=== PATIENT | female | born 1965 | race Caucasian/White ===

== ENCOUNTER 2016-08-19 10:25 | Emergency (ER) | payer OTHER | END 2016-08-19 11:18 | disposition home or self-care (01) | DX: H10.9 Unspecified conjunctivitis (principal); E03.9 Hypothyroidism, unspecified ==

== ENCOUNTER 2016-11-22 19:29 | Emergency (ER) | payer OTHER ==
[2016-11-22] MEDS ORDERED: predniSONE 20 MG TABLET PO STA (19:50)
--- NOTE | 2016-11-22 19:53 | ED Physician Documentation ---
PD HPI SKIN - Stated complaint Stated Complaint: RASH ALL OVER - Chief complaint Chief Complaint: Allergic Rx - History obtained from History obtained from: Patient - History of Present Illness Timing - onset: Other (3rd episode of itchy rash on legs/arms. Has been happening about once monthly for the last few months. Topical steroid not very effective. Plans to see derm, but new outbreak tonight. No weight chgs, night sweats or fatigue. No hair/nail chgs.) Review of Systems Constitutional: denies: Myalgias, Fatigue, Weight Loss, Sweats GI: denies: Abdominal Pain, Nausea, Vomiting : reports: Reviewed and negative PD PAST MEDICAL HISTORY - Past Medical History Past Medical History: Yes Neuro: Headache/migraine Endocrine/Autoimmune: HyPOthyroidism Other Past Medical History: environmental allergies - Past Surgical History Past Surgical History: Yes - Present Medications Home Medications: Ambulatory Orders Medication Instructions Recorded Confirmed Fluticasone [Flonase] 1 spray INH DAILY 12/20/13 11/22/16 Levothyroxine [Synthroid] 25 mcg PO DAILY 12/20/13 11/22/16 Olopatadine HCl [Patanol] 1 drop EACHEYE DAILY 01/09/15 11/22/16 Butalb/Acetaminophen/Caffeine 1 tab PO DAILY PRN 04/16/15 11/22/16 [Fioricet 50-300-40 mg Capsule] Zolmitriptan [Zomig] 2.5 mg PO DAILY PRN 09/04/15 11/22/16 Atorvastatin [Lipitor] 1 tab PO DAILY 08/19/16 11/22/16 Loratadine [Claritin] 1 tab PO DAILY 08/19/16 11/22/16 predniSONE [Deltasone] 60 mg PO DAILY 5 Days 11/22/16 - Allergies Allergies/Adverse Reactions: Allergies Allergy/AdvReac Type Severity Reaction Status Date / Time No Known Drug Allergies Allergy Verified 08/19/16 10:32 - Social History Does the pt smoke?: No Smoking Status: Never smoker Does the pt drink ETOH?: No Does the pt have substance abuse?: No - Immunizations Immunizations are current?: Yes - POLST Patient has POLST: Yes PD ED PE NORMAL - Vitals Vital signs reviewed: Yes - General General: Alert and oriented X 3, No acute distress - HEENT HEENT: Pharynx benign - Derm Derm: Other (On dorsal arms and anterior left ayala there are raised red lesions somewhat c/w urticaria but no central clearing.) - Neuro Neuro: Alert and oriented X 3, Normal speech - Psych Psych: Normal mood, Normal affect Results - Vitals Vitals: Vital Signs - 24 hr 11/22/16 11/22/16 19:33 20:14 Temperature 36.2 C L Heart Rate 102 H 98 Respiratory 18 18 Rate Blood Pressure 164/100 H 159/102 H O2 Saturation 99 98 Oxygen O2 Source Room air - Labs Labs: Laboratory Tests 11/22/16 11/22/16 11/22/16 20:10 20:10 20:10 WBC 7.4 RBC 4.20 Hgb 12.7 Hct 37.4 MCV 89.0 MCH 30.3 MCHC 34.1 RDW 13.3 Plt Count 243 MPV 8.4 Neut # 4.3 Lymph # 2.5 [place] # 0.5 Eos # 0.1 Baso # 0.1 Absolute Nucleated RBC 0.02 Nucleated RBCs 0.2 ESR 11 Sodium 138 Potassium 3.7 Chloride 104 Carbon Dioxide 25 Anion Gap 9.0 BUN 17 Creatinine 0.8 Estimated GFR (MDRD) 76 L Glucose 102 H Calcium 9.8 Total Bilirubin 0.4 AST 21 ALT 19 Alkaline Phosphatase 91 Total Protein 7.6 Albumin 4.6 Globulin 3.0 Albumin/Globulin Ratio 1.5 Lipase 26 PD MEDICAL DECISION MAKING - ED course ED course: 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 She is started on prednisone. Departure - Departure Disposition: 01 Home, Self Care Clinical Impression: Urticaria Condition: Good Record reviewed to determine appropriate education?: Yes Instructions: ED Allergic Reaction General Other Follow-Up: Jamie Johnson PA-C [Physician No Access] - Prescriptions: predniSONE [Deltasone] 60 mg PO DAILY 5 Days Comments: Followup with derm I will mail labs to you Recheck you blood pressure within 1-2 weeks, high on chck in to ED tonight. Discharge Date/Time: 11/22/16 20:15
[2016-11-22] MEDS ORDERED: predniSONE 20 MG TABLET ONE (19:55)
[2016-11-22 20:15] VITALS: BP 159/102
[2016-11-22 20:32] LABS: BASOPHILS # (AUTO) 0.1 10^3/uL (0.0-0.1); BASOPHILS % (AUTO) 0.7 %; EOSINOPHILS # (AUTO) 0.1 10^3/uL (0.0-0.7); EOSINOPHILS % (AUTO) 0.9 %; HCT - HEMATOCRIT 37.4 % (37.0-47.0); HGB - HEMOGLOBIN 12.7 g/dL (12.0-16.0); LYMPHOCYTES # (AUTO) 2.5 10^3/uL (1.5-3.5); LYMPHOCYTES % (AUTO) 33.6 %; MEAN CORPUSCULAR HEMOGLOBIN 30.3 pg (27.0-31.0); MEAN CORPUSCULAR HGB CONC 34.1 g/dL (32.0-36.0); MEAN PLATELET VOLUME 8.4 fL (7.9-10.8); MONOCYTES # (AUTO) 0.5 10^3/uL (0.0-1.0); MONOCYTES % (AUTO) 6.3 %; NEUTROPHILS # (AUTO) 4.3 10^3/uL (1.5-6.6); NEUTROPHILS % (AUTO) 58.5 %; NUCLEATED RED BLOOD CELLS AUTO 0.2 /100WBC; RED CELL DISTRIBUTION WIDTH 13.3 % (12.0-15.0); UNCORRECTED WHITE BLOOD COUNT 7.4 x10^3/uL; WHITE BLOOD COUNT 7.4 x10^3/uL (4.8-10.8)
[2016-11-22 20:53] LABS: ALBUMIN/GLOBULIN RATIO 1.5 (1.0-2.2); BILIRUBIN,TOTAL 0.4 mg/dL (0.2-1.0); CALCIUM 9.8 mg/dL (8.5-10.3); CREATININE 0.8 mg/dL (0.4-1.0); POTASSIUM 3.7 mmol/L (3.5-5.0); TOTAL PROTEIN 7.6 g/dL (6.7-8.2)
[2016-11-28 06:53] LABS: ANA SCREEN POSITIVE (NEGATIVE)
[2016-11-28 16:13] LABS: TEST RESULT REPORT (())
--- NOTE | 2016-11-29 22:28 | ED Physician Documentation ---
ED Addendum - Addendum Addendum: 11/29/16 22:27 I spoke with her by phone earlier today and discussed her lab results including the positive FAY and followup with rheumatology was advised. I mailed her a copy of her labs.
== END 2016-11-22 20:15 | disposition home or self-care (01) ==
LOC: ED 19:29
DX: L50.9 Urticaria, unspecified (principal); R76.8 Other specified abnormal immunological findings in serum; R03.0 Elevated blood-pressure reading, without diagnosis of hypertension; E03.9 Hypothyroidism, unspecified
CPT/HCPCS: 36415; 80053; 81599; 83690; 85025; 85651; 86038; 99283; J7512; 83520

== ENCOUNTER 2017-07-25 10:22 | Emergency (ER) | payer OTHER ==
--- NOTE | 2017-07-25 11:04 | ED Physician Documentation ---
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 L rib pain L foot pain seen at [facility] and abrasions cleaned no xrays today hurts a bit more needs her L&I paperwork completed too Review of Systems Constitutional: denies: Fever Cardiac: reports: Chest pain / pressure (L ribs) GI: denies: Abdominal Pain : denies: Now EGA (denies) Musculoskeletal: reports: Extremity pain, Pain with weight bearing Neurologic: denies: Focal weakness, Numbness PD PAST MEDICAL HISTORY - Past Medical History Neuro: Headache/migraine Endocrine/Autoimmune: HyPOthyroidism - Past Surgical History Past Surgical History: Yes - Present Medications Home Medications: Ambulatory Orders Medication Instructions Recorded Confirmed Fluticasone [Flonase] 1 spray INH DAILY 12/20/13 07/25/17 Levothyroxine [Synthroid] 25 mcg PO DAILY 12/20/13 07/25/17 Olopatadine HCl [Patanol] 1 drop EACHEYE DAILY 01/09/15 07/25/17 Butalb/Acetaminophen/Caffeine 1 tab PO DAILY PRN 04/16/15 07/25/17 [Fioricet 50-300-40 mg Capsule] Zolmitriptan [Zomig] 2.5 mg PO DAILY PRN 09/04/15 07/25/17 Atorvastatin [Lipitor] 1 tab PO DAILY 08/19/16 07/25/17 Loratadine [Claritin] 1 tab PO DAILY 08/19/16 07/25/17 - Allergies Allergies/Adverse Reactions: Allergies Allergy/AdvReac Type Severity Reaction Status Date / Time No Known Drug Allergies Allergy Verified 08/19/16 10:32 - Social History Does the pt smoke?: No Smoking Status: Never smoker Does the pt drink ETOH?: No Does the pt have substance abuse?: No - Immunizations Immunizations are current?: Yes - POLST Patient has POLST: Yes PD ED PE NORMAL - Vitals Vital signs reviewed: Yes - HEENT HEENT: Atraumatic - Cardiac Cardiac: RRR - Respiratory Respiratory: No respiratory distress, Clear bilaterally, Other (TTP L low lat ribs s crepitus or bruise) - Abdomen Abdomen: Non tender (no spleen TTP) - Derm Derm: Normal color - Extremities Extremities: Other (mild TTP prox 5th MT, MSV intact, no deformity, mild discloration c/w early bruising) Results - Vitals Vitals: Vital Signs - 24 hr 07/25/17 10:30 Temperature 37.4 C Heart Rate 92 Respiratory 16 Rate Blood Pressure 137/92 H O2 Saturation 98 Oxygen O2 Source Room air - Rads (name of study) CXR Radiology: See rad report (no fx) foot Radiology: See rad report (possible proximal 5th MT fx) Departure - Departure Disposition: Home, Self Care Clinical Impression: Fall Qualifiers: Encounter type: initial encounter Qualified Code(s): W19.XXXA - Unspecified fall, initial encounter Rib contusion Qualifiers: Encounter type: initial encounter Laterality: left Qualified Code(s): S20.212A - Contusion of left front wall of thorax, initial encounter Foot fracture, left Qualifiers: Encounter type: initial encounter Fracture type: closed Qualified Code(s): S92.902A - Unspecified fracture of left foot, initial encounter for closed fracture Condition: Good Instructions: ED Fx Foot, ED Contusion Rib Follow-Up: [facility] [Provider Group] MEENA DRIVER [Primary Care Provider] - [facility] [Provider Group] Comments: The ribs look fine But there may be a fracture at the base of the 5th metatarsal of the foot. So you should not walk on the foot at all and should follow up with orthopedics (here or at [facility] either is fine) for further evaluation and perhaps a CT or MRI - this is very important because the particular part of that particular bone s prone to poor blood flow and healing Motrin as needed for the pain. Ice and elevation will help too Forms: Activity restrictions
--- NOTE | 2017-07-25 12:12 | XRAY Report ---
EXAM: CHEST RADIOGRAPHY EXAM DATE: 07/25/2017 11:43 AM. CLINICAL HISTORY: Fall at work, L rib pain. COMPARISON: None. TECHNIQUE: 2 views. FINDINGS: Lungs/Pleura: No focal opacities evident. No pleural effusion. No pneumothorax. Normal volumes. Mediastinum: Heart and mediastinal contours are unremarkable. Other: Mild wedging mid thoracic vertebral bodies IMPRESSION: No active cardiopulmonary disease [facility] Referring Provider Line: [phone] SITE ID: [id number]
--- NOTE | 2017-07-25 12:15 | XRAY Preliminary Report ---
Exam: XR FOOT 3 VIEW LT IMPRESSION: Fifth proximal phalanx possible fracture. [facility] SITE ID: [id number]
--- NOTE | 2017-07-25 12:15 | XRAY Report ---
EXAM: LEFT FOOT RADIOGRAPHY EXAM DATE: 07/25/2017 11:44 AM. CLINICAL HISTORY: Fall at work L foot pain. COMPARISON: None. TECHNIQUE: 3 views. FINDINGS: Bones: Fifth proximal phalanx possible fracture. Mild metatarsus adductus. Mild bony overgrowth first metatarsal head. Plantar heel spur. Joints: Normal. No subluxations. Soft Tissues: Lateral soft tissue swelling. IMPRESSION: Fifth proximal phalanx possible fracture. [facility] Referring Provider Line: [phone] SITE ID: [id number]
[2017-07-25 13:00] VITALS: BP 159/98
== END 2017-07-25 13:29 | disposition home or self-care (01) ==
LOC: ED 10:22
DX: S92.902A Unspecified fracture of left foot, initial encounter for closed fracture (principal); S20.212A Contusion of left front wall of thorax, initial encounter; W01.0XXA Fall on same level from slipping, tripping and stumbling without subsequent striking against object, initial encounter; Y92.139 Unspecified place military base as the place of occurrence of the external cause; Y99.0 Civilian activity done for income or pay
CPT/HCPCS: 71046; 99283

== ENCOUNTER 2017-12-01 10:48 | Emergency (ER) | payer OTHER ==
[2017-12-01] MEDS ORDERED: ceFAZolin 1 GM VIAL IM STA (12:01)
[2017-12-01] MEDS ORDERED: LORATADINE 10 MG TABLET PO STA (12:07)
--- NOTE | 2017-12-01 12:39 | ED Physician Documentation ---
History of Present Illness - Stated complaint Stated Complaint: R THIGH PX - Chief complaint Chief Complaint: General - Additonal information Additional information: hx from pt 52 female prone to cellulitis s/p R inguinal lymph node removal has a new patch of infection to her R thigh no known wound etc no fever denies preg Review of Systems Constitutional: denies: Fever : denies: Now EGA Skin: reports: Rash PD PAST MEDICAL HISTORY - Past Medical History Past Medical History: Yes Endocrine/Autoimmune: HyPOthyroidism - Past Surgical History Past Surgical History: Yes - Present Medications Home Medications: Ambulatory Orders Medication Instructions Recorded Confirmed Fluticasone [Flonase] 1 spray INH DAILY 12/20/13 07/25/17 Levothyroxine [Synthroid] 25 mcg PO DAILY 12/20/13 07/25/17 Olopatadine HCl [Patanol] 1 drop EACHEYE DAILY 01/09/15 07/25/17 Butalb/Acetaminophen/Caffeine 1 tab PO DAILY PRN 04/16/15 07/25/17 [Fioricet 50-300-40 mg Capsule] Atorvastatin [Lipitor] 1 tab PO DAILY 08/19/16 07/25/17 Loratadine [Claritin] 1 tab PO DAILY 08/19/16 07/25/17 Cephalexin [Keflex] 500 mg PO Q6H #28 capsule 12/01/17 - Allergies Allergies/Adverse Reactions: Allergies Allergy/AdvReac Type Severity Reaction Status Date / Time No Known Drug Allergies Allergy Verified 12/01/17 11:12 - Social History Does the pt smoke?: No Smoking Status: Never smoker Does the pt drink ETOH?: No Does the pt have substance abuse?: No - Immunizations Immunizations are current?: Yes - POLST Patient has POLST: Yes PD ED PE NORMAL - Vitals Vital signs reviewed: Yes - General General: Alert and oriented X 3 - Cardiac Cardiac: RRR - Respiratory Respiratory: No respiratory distress, Clear bilaterally - Abdomen Abdomen: Soft, Non tender - Derm Derm: Other (pattch of warm erythema to lateral R thigh, surrounding small weals of erythema slightly rraised with periph clearing look almost hive like, no streaking, no open wounds distal to this infection, small pimple like spot upper inner thigh remote from this infection, MSV intact) Results - Vitals Vitals: Vital Signs - 24 hr 12/01/17 11:09 Temperature 36.9 C Heart Rate 92 Respiratory 16 Rate Blood Pressure 128/81 H O2 Saturation 99 Oxygen O2 Source Room air PD MEDICAL DECISION MAKING - Sepsis Event Vital Signs: Vital Signs - 24 hr 12/01/17 11:09 Temperature 36.9 C Heart Rate 92 Respiratory 16 Rate Blood Pressure 128/81 H O2 Saturation 99 Oxygen O2 Source Room air Departure - Departure Disposition: Home, Self Care Clinical Impression: Cellulitis Qualifiers: Site of cellulitis: extremity Site of cellulitis of extremity: lower extremity Laterality: right Qualified Code(s): L03.115 - Cellulitis of right lower limb Condition: Good Instructions: ED Infec Skin Cellulitis Follow-Up: MEENA DRIVER [Primary Care Provider] - (for a recheck Sunday ) Prescriptions: Cephalexin [Keflex] 500 mg PO Q6H #28 capsule Comments: Return if worse
[2017-12-01 13:02] VITALS: BP 134/101
== END 2017-12-01 13:01 | disposition home or self-care (01) ==
LOC: ED 10:48
DX: L03.115 Cellulitis of right lower limb (principal)
CPT/HCPCS: 96372; 99283

== ENCOUNTER 2018-04-08 16:28 | Emergency (ER) | payer OTHER ==
--- NOTE | 2018-04-08 16:57 | XRAY Report ---
Reason: chest pain Procedure Date: 04/08/2018 Accession Number: [id number] / [id number] Procedure: XR - Chest 2 View X-Ray CPT Code: 57243 FULL RESULT: EXAM: CHEST RADIOGRAPHY EXAM DATE: 04/08/2018 04:46 PM. CLINICAL HISTORY: Chest pain. COMPARISON: 07/25/2017. TECHNIQUE: 2 views. FINDINGS: Lungs/Pleura: No focal consolidation. No pleural effusion. No pneumothorax. Normal volumes. Mediastinum: Heart and mediastinal contours are normal. Other: None. IMPRESSION: No acute cardiopulmonary abnormality. [facility]
[2018-04-08 17:24] LABS: BASOPHILS # (AUTO) 0.1 10^3/uL (0.0-0.1); BASOPHILS % (AUTO) 1.2 %; EOSINOPHILS # (AUTO) 0.1 10^3/uL (0.0-0.7); EOSINOPHILS % (AUTO) 1.4 %; HGB - HEMOGLOBIN 13.5 g/dL (12.0-16.0); LYMPHOCYTES # (AUTO) 2.1 10^3/uL (1.5-3.5); LYMPHOCYTES % (AUTO) 37.5 %; MEAN CORPUSCULAR HEMOGLOBIN 30.7 pg (27.0-31.0); MEAN CORPUSCULAR HGB CONC 34.2 g/dL (32.0-36.0); MEAN CORPUSCULAR VOLUME 89.8 fL (81.0-99.0); MEAN PLATELET VOLUME 7.6 fL (7.9-10.8); MONOCYTES # (AUTO) 0.3 10^3/uL (0.0-1.0); MONOCYTES % (AUTO) 5.5 %; NEUTROPHILS % (AUTO) 54.4 %; PLT - PLATELET COUNT 287 10^3/uL (130-450); RED CELL DISTRIBUTION WIDTH 13.2 % (12.0-15.0); WHITE BLOOD COUNT 5.5 x10^3/uL (4.8-10.8)
[2018-04-08 17:39] LABS: ALBUMIN 4.5 g/dL (3.2-5.5); ALBUMIN/GLOBULIN RATIO 1.4 (1.0-2.2); BILIRUBIN,TOTAL 0.2 mg/dL (0.2-1.0); CALCIUM 9.3 mg/dL (8.5-10.3); CREATININE 0.9 mg/dL (0.4-1.0); TOTAL PROTEIN 7.7 g/dL (6.7-8.2)
[2018-04-08] MEDS ORDERED: SUMAtriptan 25 MG TABLET PO STA (20:02)
--- NOTE | 2018-04-08 20:10 | ED Physician Documentation ---
PD HPI CHEST PAIN - Stated complaint Stated Complaint: CP - Chief complaint Chief Complaint: Cardiac - History obtained from History obtained from: Patient - History of Present Illness Timing - onset: Today (She has been having increasing headaches lately, she had a gradual onset headache bothering her all day since she woke up. It has been persistent and severe and then later in the day, mid morning to midday she developed an odd chest pain that only bothered her when she walks. It was not the exertion that bothered her but the actual movement of walking, felt like bouncing up and down in the chest. She is not short of breath, not light sensitive. Is not the worst headache of her life. She denies any radiation of the chest pain. No pedal edema or calf pain or recent travel.) Review of Systems Constitutional: reports: Reviewed and negative Cardiac: denies: Palpitations, Pedal edema, Calf pain Respiratory: denies: Dyspnea, Cough, Hemoptysis, Wheezing PD PAST MEDICAL HISTORY - Past Medical History Endocrine/Autoimmune: HyPOthyroidism - Past Surgical History Past Surgical History: Yes - Present Medications Home Medications: Ambulatory Orders Medication Instructions Recorded Confirmed Fluticasone [Flonase] 1 spray INH DAILY 12/20/13 07/25/17 Levothyroxine [Synthroid] 25 mcg PO DAILY 12/20/13 07/25/17 Olopatadine HCl [Patanol] 1 drop EACHEYE DAILY 01/09/15 07/25/17 Butalb/Acetaminophen/Caffeine 1 tab PO DAILY PRN 04/16/15 07/25/17 [Fioricet 50-300-40 mg Capsule] Atorvastatin [Lipitor] 1 tab PO DAILY 08/19/16 07/25/17 Loratadine [Claritin] 1 tab PO DAILY 08/19/16 07/25/17 Cephalexin [Keflex] 500 mg PO Q6H #28 capsule 12/01/17 Rizatriptan Benzoate [Maxalt Chicken Handler] 5 mg PO BID PRN #18 tab.rapdis 04/08/18 - Allergies Allergies/Adverse Reactions: Allergies Allergy/AdvReac Type Severity Reaction Status Date / Time No Known Drug Allergies Allergy Verified 04/08/18 16:37 - Social History Does the pt smoke?: No Smoking Status: Never smoker Does the pt drink ETOH?: No Does the pt have substance abuse?: No - Immunizations Immunizations are current?: Yes - POLST Patient has POLST: Yes PD ED PE NORMAL - Vitals Vital signs reviewed: Yes - General General: Alert and oriented X 3, No acute distress - HEENT HEENT: PERRL, EOMI - Neck Neck: Supple, no meningeal sign, No bony TTP - Cardiac Cardiac: RRR, No murmur - Respiratory Respiratory: No respiratory distress, Clear bilaterally - Abdomen Abdomen: Non tender - Extremities Extremities: No edema, No calf tenderness / cord - Neuro Neuro: Alert and oriented X 3, Normal speech Eye Opening: Spontaneous Motor: Obeys Commands Verbal: Oriented GCS Score: 15 - Psych Psych: Normal mood, Normal affect Results - Vitals Vitals: Vital Signs - 24 hr 04/08/18 04/08/18 04/08/18 16:29 20:23 20:26 Temperature 36.3 C L 37.1 C Heart Rate 86 89 Respiratory 18 18 Rate Blood Pressure 147/97 H 131/95 H Blood Pressure 131/95 H [Left] O2 Saturation 98 97 Oxygen O2 Source Room air - EKG (time done) 1634 Rate: Rate (enter#) (83) Rhythm: NSR [place]: Normal Intervals: Normal [place] QRS: Normal Ischemia: Normal ST segments Computer interpretation: Agree with computer - Labs Labs: Laboratory Tests 04/08/18 04/08/18 04/08/18 17:20 17:20 17:20 WBC 5.5 RBC 4.40 Hgb 13.5 Hct 39.5 MCV 89.8 MCH 30.7 MCHC 34.2 RDW 13.2 Plt Count 287 MPV 7.6 L Neut # (Auto) 3.0 Lymph # (Auto) 2.1 [place] # (Auto) 0.3 Eos # (Auto) 0.1 Baso # (Auto) 0.1 Absolute Nucleated RBC 0.01 Nucleated RBC % 0.1 Sodium 138 Potassium 3.7 Chloride 103 Carbon Dioxide 27 Anion Gap 8.0 BUN 15 Creatinine 0.9 Estimated GFR (MDRD) 66 L Glucose 114 H Calcium 9.3 Total Bilirubin 0.2 AST 22 ALT 22 Alkaline Phosphatase 111 Troponin I < 0.04 Total Protein 7.7 Albumin 4.5 Globulin 3.2 Albumin/Globulin Ratio 1.4 Lipase 33 PD MEDICAL DECISION MAKING - ED course ED course: Heart score 1, Very atypical story, migraine is actually bothering her more. She had no relief with p.o. Imitrex but after the administration of IV Reglan Benadryl and Toradol she was feeling much better. Departure - Departure Disposition: 01 Home, Self Care Clinical Impression: Chest pain Qualifiers: Chest pain type: unspecified Qualified Code(s): R07.9 - Chest pain, unspecified Migraine Qualifiers: Migraine type: with aura Status migrainosus presence: with status migrainosus Intractability: intractable Qualified Code(s): G43.111 - Migraine with aura, intractable, with status migrainosus Condition: Good Record reviewed to determine appropriate education?: Yes Instructions: ED Chest Pain NonCardiac Prescriptions: Rizatriptan Benzoate [Maxalt Chicken Handler] 5 mg PO BID PRN #18 tab.rapdis PRN Reason: Headache Comments: Call your doctor to arrange a follow-up appointment, make the next available appointment. In the interim, return anytime if worse or if new symptoms develop.
[2018-04-08] MEDS ORDERED: SODIUM CHLORIDE 0.9% 1,000 ML IV ONE (21:06)
[2018-04-08] MEDS ORDERED: diphenhydrAMINE INJ 50 MG/ML VIAL IVP STA (21:06)
[2018-04-08] MEDS ORDERED: DEXAMETHASONE 10 MG/ML VIAL IVP STA (21:06)
[2018-04-08] MEDS ORDERED: KETOROLAC 15 MG/ML VIAL IVP STA (21:06)
[2018-04-08] MEDS ORDERED: METOCLOPRAMIDE 10 MG/2 ML VIAL IVP STA (21:06)
[2018-04-08 22:26] VITALS: BP 130/85
== END 2018-04-08 22:34 | disposition home or self-care (01) ==
LOC: ED 16:28
DX: G43.111 Migraine with aura, intractable, with status migrainosus (principal); R07.9 Chest pain, unspecified
CPT/HCPCS: 36415; 71046; 80053; 83690; 84484; 85025; 93005; 99283; A9270; J1200; J2765

== ENCOUNTER 2018-04-12 12:04 | Emergency (ER) | payer OTHER ==
--- NOTE | 2018-04-12 14:07 | ED Physician Documentation ---
PD HPI ABD PAIN - Stated complaint Stated Complaint: HEADACHE/NAUSEA - Chief complaint Chief Complaint: Neuro - History obtained from History obtained from: Patient - History of Present Illness Timing - onset: How many weeks ago (1) Timing - duration: Weeks (1) Timing - details: Gradual onset, Still present, Waxing and waning Quality: Cramping, Aching. No: Fullness/distended Location: All over / everywhere, Periumbilical Radiation: No: Chest, Left flank, Right flank Improved by: Laying still Worsened by: Eating, Palpation. No: Breathing Associated symptoms: Nausea, Constipation (firm stools ongoing). No: Fever, Vomiting, Diarrhea Similar symptoms before: Has not had sx before Recently seen: Emergency Dept (seen ER with the symptoms earlier in week, and headache improved with toradol/reglan.) Review of Systems Constitutional: denies: Fever, Chills, Myalgias Eyes: denies: Loss of vision, Photophobia Nose: denies: Rhinorrhea / runny nose, Congestion Throat: denies: Sore throat Cardiac: denies: Chest pain / pressure, Palpitations Respiratory: denies: Dyspnea, Cough GI: reports: Abdominal Pain, Nausea, Constipation. denies: Vomiting, Diarrhea, Bloody / black stool : denies: Dysuria, Frequency Skin: denies: Rash, Lesions Musculoskeletal: denies: Neck pain, Back pain Neurologic: reports: Headache. denies: Focal weakness, Numbness, Confused, Altered mental status, Head injury PD PAST MEDICAL HISTORY - Past Medical History Cardiovascular: High cholesterol Respiratory: None Neuro: Headaches Endocrine/Autoimmune: HyPOthyroidism GI: None RADIOLOGY TECH: None : None HEENT: None Psych: None Musculoskeletal: None Derm: None - Past Surgical History Past Surgical History: Yes /RADIOLOGY TECH: Tubal ligation - Present Medications Home Medications: Ambulatory Orders Medication Instructions Recorded Confirmed Fluticasone [Flonase] 1 spray INH DAILY 12/20/13 07/25/17 Levothyroxine [Synthroid] 25 mcg PO DAILY 12/20/13 07/25/17 Olopatadine HCl [Patanol] 1 drop EACHEYE DAILY 01/09/15 07/25/17 Butalb/Acetaminophen/Caffeine 1 tab PO DAILY PRN 04/16/15 07/25/17 [Fioricet 50-300-40 mg Capsule] Atorvastatin [Lipitor] 1 tab PO DAILY 08/19/16 07/25/17 Loratadine [Claritin] 1 tab PO DAILY 08/19/16 07/25/17 Cephalexin [Keflex] 500 mg PO Q6H #28 capsule 12/01/17 Rizatriptan Benzoate [Maxalt Photographic Processor] 5 mg PO BID PRN #18 tab.rapdis 04/08/18 Dexamethasone [Decadron] 4 mg PO DAILY #5 tablet 04/12/18 Docusate Sodium 100 mg PO DAILY #15 capsule 04/12/18 HYDROcod/ACETAM 5/325 [[place] 5/325] 1 tab PO Q6H PRN #15 tablet 04/12/18 Ondansetron HCl [Zofran] 4 mg PO Q6H PRN #20 tablet 04/12/18 - Allergies Allergies/Adverse Reactions: Allergies Allergy/AdvReac Type Severity Reaction Status Date / Time No Known Drug Allergies Allergy Verified 04/08/18 16:37 - Social History Does the pt smoke?: No Smoking Status: Never smoker Does the pt drink ETOH?: No Does the pt have substance abuse?: No - Immunizations Immunizations are current?: Yes - POLST Patient has POLST: Yes PD ED PE NORMAL - Vitals Vital signs reviewed: Yes - General General: Alert and oriented X 3, No acute distress, Well developed/nourished - HEENT HEENT: PERRL (some light sensitive, not distinct), EOMI, Pharynx benign - Neck Neck: Supple, no meningeal sign, No adenopathy - Cardiac Cardiac: RRR, No murmur - Respiratory Respiratory: Clear bilaterally - Abdomen Abdomen: Soft, Non tender - Derm Derm: Normal color, Warm and dry - Extremities Extremities: No deformity, No tenderness to palpate, Normal ROM s pain - Neuro Neuro: Alert and oriented X 3, 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, No motor deficit, No sensory deficit, Normal speech Eye Opening: Spontaneous Motor: Obeys Commands Verbal: Oriented GCS Score: 15 Results - Vitals Vitals: Oxygen O2 Source Room air - Labs Labs: Microbiology 04/12/18 12:45 Urine Culture - Final Urine,Random No growth Laboratory Tests 04/12/18 04/12/18 04/12/18 12:45 14:15 14:15 WBC 8.1 RBC 4.46 Hgb 13.9 Hct 39.8 MCV 89.3 MCH 31.1 H MCHC 34.8 RDW 13.2 Plt Count 279 MPV 8.1 Neut # (Auto) 6.2 Lymph # (Auto) 1.3 L [place] # (Auto) 0.4 Eos # (Auto) 0.0 Baso # (Auto) 0.1 Absolute Nucleated RBC 0.00 Nucleated RBC % 0.0 ESR Sodium 134 L Potassium 3.8 Chloride 100 L Carbon Dioxide 26 Anion Gap 8.0 BUN 16 Creatinine 0.7 Estimated GFR (MDRD) 89 Glucose 105 H Calcium 9.4 Total Bilirubin 0.8 AST 22 ALT 22 Alkaline Phosphatase 113 Total Protein 7.9 Albumin 4.6 Globulin 3.3 Albumin/Globulin Ratio 1.4 Lipase 26 Urine Color LT. YELLOW Urine Clarity CLEAR Urine pH 7.0 Ur Specific [place] 1.020 Urine Protein NEGATIVE Urine Glucose (UA) NEGATIVE Urine Ketones NEGATIVE Urine Occult Blood NEGATIVE Urine Nitrite NEGATIVE Urine Bilirubin NEGATIVE Urine Urobilinogen 0.2 (NORMAL) Ur Leukocyte Esterase TRACE H Urine RBC 0-5 Urine WBC 4-5 Ur Squamous Epith Cells FEW Squamous Urine Bacteria None Seen Ur Microscopic Review INDICATED Urine Culture Comments INDICATED 04/12/18 14:15 WBC RBC Hgb Hct MCV MCH MCHC RDW Plt Count MPV Neut # (Auto) Lymph # (Auto) [place] # (Auto) Eos # (Auto) Baso # (Auto) Absolute Nucleated RBC Nucleated RBC % ESR 8 Sodium Potassium Chloride Carbon Dioxide Anion Gap BUN Creatinine Estimated GFR (MDRD) Glucose Calcium Total Bilirubin AST ALT Alkaline Phosphatase Total Protein Albumin Globulin Albumin/Globulin Ratio Lipase Urine Color Urine Clarity Urine pH Ur Specific [place] Urine Protein Urine Glucose (UA) Urine Ketones Urine Occult Blood Urine Nitrite Urine Bilirubin Urine Urobilinogen Ur Leukocyte Esterase Urine RBC Urine WBC Ur Squamous Epith Cells Urine Bacteria Ur Microscopic Review Urine Culture Comments PD MEDICAL DECISION MAKING - ED course Complexity details: considered differential (headache seesm migrainaous and improves with migraine treatment meds. Stomach pain cause not clear. Consider colitis or even just constipation. ), d/w patient Departure - Departure Disposition: 01 Home, Self Care Clinical Impression: Head ache Qualifiers: Headache type: unspecified Headache chronicity pattern: acute headache Intractability: not intractable Qualified Code(s): R51 - Headache Abdominal pain Qualifiers: Abdominal location: periumbilical Qualified Code(s): R10.33 - Periumbilical pain Condition: Stable Record reviewed to determine appropriate education?: Yes Instructions: ED Abdominal Pain Unkn Cause, ED Headache Migraine Follow-Up: MEENA DRIVER [Primary Care Provider] - Prescriptions: Dexamethasone [Decadron] 4 mg PO DAILY #5 tablet Docusate Sodium 100 mg PO DAILY #15 capsule HYDROcod/ACETAM 5/325 [[place] 5/325] 1 tab PO Q6H PRN #15 tablet PRN Reason: Pain Ondansetron HCl [Zofran] 4 mg PO Q6H PRN #20 tablet PRN Reason: Nausea / Vomiting Comments: Drink lots of fluids. Ondansetron if needed for nausea. Decadron daily for 5 more days to help reduce the rebound of the migraine type headache. He is daily stool softener for the next several days to week. Tylenol or ibuprofen if needed for pain. Add hydrocodone if needed for worse pain. See if your headache goes away and stays away over the next couple of days. Recheck if the abdominal pain does not improve at this point there is no particular indicator to suggest more serious infection or problem. Discharge Date/Time: 04/12/18 16:17
[2018-04-12] MEDS ORDERED: KETOROLAC 60 MG/2 ML VIAL IVP STA (14:30)
[2018-04-12] MEDS ORDERED: SODIUM CHLORIDE 0.9% 1,000 ML IV ONE (14:30)
[2018-04-12] MEDS ORDERED: DEXAMETHASONE 10 MG/ML VIAL IVP STA (14:31)
[2018-04-12] MEDS ORDERED: METOCLOPRAMIDE 10 MG/2 ML VIAL IVP STA (14:31)
[2018-04-12 14:39] LABS: BASOPHILS # (AUTO) 0.1 10^3/uL (0.0-0.1); BASOPHILS % (AUTO) 0.9 %; EOSINOPHILS % (AUTO) 0.4 %; HGB - HEMOGLOBIN 13.9 g/dL (12.0-16.0); LYMPHOCYTES # (AUTO) 1.3 10^3/uL (1.5-3.5); LYMPHOCYTES % (AUTO) 16.6 %; MEAN CORPUSCULAR HEMOGLOBIN 31.1 pg (27.0-31.0); MEAN CORPUSCULAR HGB CONC 34.8 g/dL (32.0-36.0); MEAN CORPUSCULAR VOLUME 89.3 fL (81.0-99.0); MEAN PLATELET VOLUME 8.1 fL (7.9-10.8); MONOCYTES # (AUTO) 0.4 10^3/uL (0.0-1.0); MONOCYTES % (AUTO) 5.4 %; NEUTROPHILS # (AUTO) 6.2 10^3/uL (1.5-6.6); NEUTROPHILS % (AUTO) 76.7 %; PLT - PLATELET COUNT 279 10^3/uL (130-450); RED BLOOD COUNT 4.46 10^6/uL (4.20-5.40); RED CELL DISTRIBUTION WIDTH 13.2 % (12.0-15.0); WHITE BLOOD COUNT 8.1 x10^3/uL (4.8-10.8)
[2018-04-12 14:43] LABS: BILIRUBIN,URINE NEGATIVE (NEGATIVE); GLUCOSE, URINE (UA) NEGATIVE (NEGATIVE); KETONES,URINE (UA) NEGATIVE (NEGATIVE); LEUKOCYTE ESTERASE, URINE TRACE (NEGATIVE); NITRITE,URINE NEGATIVE (NEGATIVE); OCCULT BLOOD,URINE NEGATIVE (NEGATIVE); PROTEIN,URINE NEGATIVE (NEGATIVE); UROBILINOGEN,URINE 0.2 (NORMAL) E.U./dL (NORMAL)
[2018-04-12 14:47] LABS: ALBUMIN 4.6 g/dL (3.2-5.5); ALBUMIN/GLOBULIN RATIO 1.4 (1.0-2.2); BILIRUBIN,TOTAL 0.8 mg/dL (0.2-1.0); CALCIUM 9.4 mg/dL (8.5-10.3); CREATININE 0.7 mg/dL (0.4-1.0); TOTAL PROTEIN 7.9 g/dL (6.7-8.2)
[2018-04-12 14:51] LABS: CLARITY,URINE CLEAR (CLEAR)
[2018-04-12 14:52] LABS: BACTERIA,URINE None Seen /HPF (None Seen); RBC,URINE 0-5 /HPF (0-5); SQUAMOUS EPITHELIAL CELL,UR FEW Squamous (<= Few)
[2018-04-12 15:57] VITALS: BP 141/80
== END 2018-04-12 16:17 | disposition home or self-care (01) ==
LOC: ED 12:04
DX: R51 Headache (principal); R10.33 Periumbilical pain; R11.0 Nausea
CPT/HCPCS: 36415; 80053; 81001; 83690; 85025; 85651; 87086; 96361; 96374; 96375; 99283; 99284; J2765; 81003

== ENCOUNTER 2018-08-21 16:46 | Emergency (ER) | payer OTHER ==
[2018-08-21] MEDS ORDERED: HYDROmorphone 1 MG/ML CARPUJECT IVP STA (18:09)
[2018-08-21] MEDS ORDERED: ONDANSETRON 4 MG/2 ML VIAL IVP STA (18:09)
--- NOTE | 2018-08-21 18:11 | ED Physician Documentation ---
PD HPI HEENT - Stated complaint Stated Complaint: NECK/JAW SWELLING - Chief complaint Chief Complaint: Heent - History obtained from History obtained from: Patient - History of Present Illness Timing - onset: Yesterday (She had a molar pulled on the left mandible about a month ago. Stuttering yesterday she has had progressive left-sided anterior neck pain that is severe and worse with rotation of the head to the right. Her voice is slightly muffled but no sore throat per se. No other respiratory symptoms. 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 : None HEENT: None Psych: None Musculoskeletal: None Derm: None - Past Surgical History Past Surgical History: Yes /MECHANICAL EXPERT: Tubal ligation - Present Medications Home Medications: Ambulatory Orders Medication Instructions Recorded Confirmed Fluticasone [Flonase] 1 spray INH DAILY 12/20/13 08/21/18 Levothyroxine [Synthroid] 25 mcg PO DAILY 12/20/13 08/21/18 Olopatadine HCl [Patanol] 1 drop EACHEYE DAILY 01/09/15 08/21/18 Butalb/Acetaminophen/Caffeine 1 tab PO DAILY PRN 04/16/15 08/21/18 [Fioricet 50-300-40 mg Capsule] Atorvastatin [Lipitor] 1 tab PO DAILY 08/19/16 08/21/18 Loratadine [Claritin] 1 tab PO DAILY 08/19/16 08/21/18 Rizatriptan Benzoate [Maxalt Criminal Investigator] 5 mg PO BID PRN #18 tab.rapdis 04/08/18 08/21/18 - Allergies Allergies/Adverse Reactions: Allergies Allergy/AdvReac Type Severity Reaction Status Date / Time No Known Drug Allergies Allergy Verified 08/21/18 17:03 - Social History Does the pt smoke?: No Smoking Status: Never smoker Does the pt drink ETOH?: No Does the pt have substance abuse?: No - Immunizations Immunizations are current?: Yes - POLST Patient has POLST: Yes PD ED PE NORMAL - Vitals Vital signs reviewed: Yes - General General: Alert and oriented X 3, No acute distress - HEENT HEENT: PERRL, EOMI, Pharynx benign - Neck Neck: Supple, no meningeal sign, No bony TTP, Other (She actually has a little rash on the left side of the neck that I thought might be shingles, but she says that the chronic condition and not new.) - Neuro Neuro: Alert and oriented X 3, Normal speech Results - Vitals Vitals: Vital Signs - 24 hr 08/21/18 08/21/18 16:57 19:34 Temperature 36.3 C L 37 C Heart Rate 88 74 Respiratory 18 16 Rate Blood Pressure 152/100 H 150/82 H O2 Saturation 97 98 Oxygen O2 Source Room air - Labs Labs: Laboratory Tests 08/21/18 08/21/18 08/21/18 18:21 18:21 18:23 WBC 5.7 RBC 4.21 Hgb 12.7 Hct 37.9 MCV 90.1 MCH 30.3 MCHC 33.6 RDW 13.9 Plt Count 251 MPV 7.8 L Neut # (Auto) 2.9 Lymph # (Auto) 2.3 [place] # (Auto) 0.4 Eos # (Auto) 0.1 Baso # (Auto) 0.0 Absolute Nucleated RBC 0.00 Nucleated RBC % 0.0 Sodium 138 Potassium 3.7 Chloride 105 Carbon Dioxide 23 Anion Gap 10.0 BUN 15 Creatinine 0.7 Estimated GFR (MDRD) 88 L Glucose 100 Calcium 9.7 Total Bilirubin 0.5 AST 29 ALT 40 Alkaline Phosphatase 82 Total Protein 7.7 Albumin 4.6 Globulin 3.1 Albumin/Globulin Ratio 1.5 Lipase 34 Group A Strep Rapid Negative - Rads (name of study) CT Neck with contrast Radiology: EMP read contemporaneously, See rad report PD MEDICAL DECISION MAKING - ED course ED course: 53-year-old woman who presents with left neck pain after her molar removal. Concern for infection, but white count normal and CT showing only no findings. ENT follow-up was advised for the vallecula lesion, but this would not explain her issues. Departure - Departure Disposition: 01 Home, Self Care Clinical Impression: Neck pain Condition: Good Record reviewed to determine appropriate education?: Yes Instructions: ED Neck Pain No Trauma Comments: As discussed I think it cortes to follow-up with an ear nose and throat surgeon for the vallecula lesion. Take the copy of the CAT scan read and original images with you to that appointment. The phone number is [phone]. Return for new or worsening symptoms.
[2018-08-21 18:30] LABS: BASOPHILS % (AUTO) 0.9 %; EOSINOPHILS # (AUTO) 0.1 10^3/uL (0.0-0.7); EOSINOPHILS % (AUTO) 1.3 %; HGB - HEMOGLOBIN 12.7 g/dL (12.0-16.0); LYMPHOCYTES # (AUTO) 2.3 10^3/uL (1.5-3.5); LYMPHOCYTES % (AUTO) 40.9 %; MEAN CORPUSCULAR HEMOGLOBIN 30.3 pg (27.0-31.0); MEAN CORPUSCULAR HGB CONC 33.6 g/dL (32.0-36.0); MEAN CORPUSCULAR VOLUME 90.1 fL (81.0-99.0); MEAN PLATELET VOLUME 7.8 fL (7.9-10.8); MONOCYTES # (AUTO) 0.4 10^3/uL (0.0-1.0); MONOCYTES % (AUTO) 6.7 %; NEUTROPHILS # (AUTO) 2.9 10^3/uL (1.5-6.6); NEUTROPHILS % (AUTO) 50.2 %; PLT - PLATELET COUNT 251 10^3/uL (130-450); RED BLOOD COUNT 4.21 10^6/uL (4.20-5.40); RED CELL DISTRIBUTION WIDTH 13.9 % (12.0-15.0); WHITE BLOOD COUNT 5.7 x10^3/uL (4.8-10.8)
[2018-08-21] MEDS ORDERED: MORPHINE 2 MG/ML CARPUJECT IVP STA (18:39)
[2018-08-21 18:41] LABS: ALBUMIN 4.6 g/dL (3.2-5.5); ALBUMIN/GLOBULIN RATIO 1.5 (1.0-2.2); BILIRUBIN,TOTAL 0.5 mg/dL (0.2-1.0); CALCIUM 9.7 mg/dL (8.5-10.3); CREATININE 0.7 mg/dL (0.4-1.0); TOTAL PROTEIN 7.7 g/dL (6.7-8.2)
[2018-08-21] MEDS ORDERED: IOPAMIDOL-300 100 ML VIAL ONE (18:57)
[2018-08-21] MEDS ORDERED: IOPAMIDOL-300 100 ML VIAL IVP ONE (19:08)
[2018-08-21] MEDS ORDERED: KETOROLAC 30 MG/ML VIAL IVP STA (19:22)
[2018-08-21 19:35] VITALS: BP 150/82
--- NOTE | 2018-08-21 19:40 | CT Report ---
Reason: L neck pain Procedure Date: 08/21/2018 Accession Number: [id number] / [id number] Procedure: CT - SOFT TISSUE NECK W CPT Code: FULL RESULT: EXAM: CT SOFT TISSUE NECK WITH CONTRAST. EXAM DATE: 08/21/2018 07:05 PM. HISTORY: 53-year-old with left neck pain. COMPARISONS: None. TECHNIQUE: Routine soft tissue neck CT protocol. Reconstructions: Coronal and sagittal. IV contrast: ISOVUE 300 [address] mL[address] In accordance with CT protocol optimization, one or more of the following dose reduction techniques were utilized for this exam: automated exposure control, adjustment of mA and/or KV based on patient size, or use of iterative reconstructive technique. FINDINGS: Visualized Intracranial Contents: Unremarkable. Orbits: Symmetric and unremarkable. Sinuses: Visualized paranasal sinuses and mastoid air cells are clear. Oral cavity: The visualized oral cavity is unremarkable. The floor of the mouth is symmetric. Pharynx: Pharyngeal mucosa is unremarkable. The infratemporal fossa, parapharyngeal spaces, and retropharyngeal space are unremarkable. The base of the tongue is symmetric and unremarkable. There is a hyperdense nodule seen arising from the epiglottis projecting into the right vallecula measuring 5 x 5 x 5 mm (CC by TR by AP). The airway is patent. Larynx: Larynx and supraglottic airway are patent without mass lesion. Vocal cords are symmetric. The visualized trachea is unremarkable. Parotid and Submandibular Glands: Symmetric and unremarkable. Lymph Nodes: No enlarged lymph nodes are identified in the cervical, supraclavicular, and visualized superior mediastinal regions. Soft tissues: Soft tissues are unremarkable. No mass lesion or abnormal enhancement. Vascular Structures: Unremarkable. Thyroid Gland: Normal. Lung: The visualized lung apices are clear. Bones: No evidence of acute fracture or malalignment. There are mild degenerative changes. Sclerotic lesion within the T1 vertebral body measuring up to 5 mm. Finding may represent bone island. Other: None. IMPRESSION: 1. There is a hyperdense nodule seen arising from the epiglottis projecting into the right vallecula measuring 5 x 5 x 5 mm (cc by TR by AP). Finding may represent polyp or proteinaceous cyst. Correlation with direct visualization would be of use. 2. No other definite mass, inflammatory process, fluid collection, or abnormal postcontrast enhancement seen within the neck. 3. No cervical lymphadenopathy. 4. Sclerotic lesion within the T1 vertebral body measuring up to 5 mm. Finding may represent bone island. Other pathology is not excluded. If clinically indicated an active nuclear medicine bone scan could be considered. [facility]
== END 2018-08-21 20:14 | disposition home or self-care (01) ==
LOC: ED 16:46
DX: M54.2 Cervicalgia (principal); R21 Rash and other nonspecific skin eruption; Z98.818 Other dental procedure status
CPT/HCPCS: 36415; 70491; 80053; 83690; 85025; 87070; 87430; 96374; 96375; 99283; Q9967

== ENCOUNTER 2020-07-16 09:58 | Emergency (ER) | payer OTHER ==
--- NOTE | 2020-07-16 10:21 | ED Physician Documentation ---
PD HPI UPPER EXT INJURY - Stated complaint Stated Complaint: LT ARM PX - Chief complaint Chief Complaint: Wound - History obtained from History obtained from: Patient - History of Present Illness Location: Left, Arm Type of injury: Other (immunization) Where injury occurred: Other (vaccine site) Timing - onset: How many days ago (2) Timing - duration: Days (2) Timing - details: Gradual onset, Still present Improved by: Rest, Immobilization Worsened by: Moving, Palpating Associated symptoms: Swelling, Discolored. 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 She has a history of cellulitis that has recurred in various areas. 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 She states that she has felt poorly after getting the shot and continues to feel poorly and attributes this now to the infection. Review of Systems Constitutional: reports: Fever, Myalgias, Fatigue Eyes: denies: Decreased vision Ears: denies: Ear pain Nose: denies: Rhinorrhea / runny nose, Congestion Throat: denies: Sore throat Cardiac: denies: Chest pain / pressure Respiratory: denies: Dyspnea, Cough GI: denies: Abdominal Pain, Nausea, Vomiting, Constipation, Diarrhea : denies: Dysuria, Frequency Skin: reports: Rash Musculoskeletal: reports: Extremity pain, Extremity swelling. denies: Neck pain, Back pain Neurologic: denies: Generalized weakness, Focal weakness, Numbness PD PAST MEDICAL HISTORY - Past Medical History Cardiovascular: High cholesterol Respiratory: None Neuro: Headaches, Migraines Endocrine/Autoimmune: HyPOthyroidism GI: None RN ONCOLOGY CLINICAL: None : None HEENT: None Psych: None Musculoskeletal: None Derm: None - Past Surgical History Past Surgical History: Yes /RN ONCOLOGY CLINICAL: Tubal ligation - Present Medications Home Medications: Ambulatory Orders Medication Instructions Recorded Confirmed Fluticasone [Flonase] 1 spray INH DAILY 12/20/13 07/16/20 Levothyroxine [Synthroid] 25 mcg PO DAILY 12/20/13 07/16/20 Olopatadine HCl [Patanol] 1 drop EACHEYE DAILY 01/09/15 07/16/20 Butalb/Acetaminophen/Caffeine 1 tab PO DAILY PRN 04/16/15 07/16/20 [Fioricet 50-300-40 mg Capsule] Cefdinir 300 mg PO BID #14 tab 07/16/20 - Allergies Allergies/Adverse Reactions: Allergies Allergy/AdvReac Type Severity Reaction Status Date / Time No Known Drug Allergies Allergy Verified 07/16/20 10:05 - Social History Does the pt smoke?: No Smoking Status: Never smoker Does the pt drink ETOH?: No Does the pt have substance abuse?: No - Immunizations Immunizations are current?: Yes - POLST Patient has POLST: Yes PD ED PE NORMAL - Vitals Vital signs reviewed: Yes (tachy and hypertensive ) - General General: Alert and oriented X 3, No acute distress, Well developed/nourished - HEENT HEENT: Atraumatic, PERRL, EOMI - Neck Neck: Supple, no meningeal sign, No bony TTP - Respiratory Respiratory: No respiratory distress - Back Back: No CVA TTP, No spinal TTP - Derm Derm: Normal color, Warm and dry - Extremities Extremities: Other (There is an area to the left arm approximately 6 cm in diameter of erythema and swelling without fluctuance. 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, No motor deficit, No sensory deficit, Normal speech Eye Opening: Spontaneous Motor: Obeys Commands Verbal: Oriented GCS Score: 15 - Psych Psych: Normal mood, Normal affect Results - Vitals Vitals: Vital Signs - 24 hr 07/16/20 10:06 Temperature 37.9 C Heart Rate 106 H Respiratory 19 Rate Blood Pressure 179/114 H O2 Saturation 100 Oxygen O2 Source Room air PD MEDICAL DECISION MAKING - ED course Complexity details: reviewed old records, reviewed results, re-evaluated patient, considered differential, d/w patient ED course: 55-year-old female with a prior history of cellulitis that has recurred on her has had a injection into her left arm and now has cellulitis at injection site. There is no evidence of an abscess today. The patient states that she usually has gotten better with which ever antibiotics been prescribed I see in our record the last we prescribed her was cefdinir. She is given an injection of Rocephin here and her cefdinir is E scribed to [facility] Departure - Departure Disposition: 01 Home, Self Care Clinical Impression: Cellulitis Qualifiers: Site of cellulitis: extremity Site of cellulitis of extremity: upper extremity Laterality: left Qualified Code(s): L03.114 - Cellulitis of left upper limb Condition: Stable Instructions: ED Infec Skin Cellulitis Follow-Up: KAYLYN Delong [Provider Group] Prescriptions: Cefdinir 300 mg PO BID #14 tab
[2020-07-16] MEDS ORDERED: LIDOCAINE 1% 2 ML VIAL MC ONE (10:26)
[2020-07-16] MEDS ORDERED: cefTRIAXone 1 GM VIAL IM STA (10:26)
[2020-07-16 10:40] VITALS: BP 160/100
== END 2020-07-16 10:38 | disposition home or self-care (01) ==
LOC: ED 09:58
DX: L03.114 Cellulitis of left upper limb (principal); T88.0XXA Infection following immunization, initial encounter
CPT/HCPCS: 96372; 99283; 99284

== ENCOUNTER 2021-06-01 10:56 | Emergency (ER) | payer OTHER ==
[2021-06-01 11:50] VITALS: BP 149/94
[2021-06-01] MEDS ORDERED: LIDOCAINE 1% 2 ML VIAL MC ONE (12:49)
[2021-06-01] MEDS ORDERED: cefTRIAXone 1 GM VIAL IM STA (12:49)
--- NOTE | 2021-06-01 12:52 | ED Physician Documentation ---
History of Present Illness - Stated complaint Stated Complaint: FEMALE - Chief complaint Chief Complaint: Wound - History obtained from History obtained from: Patient - History of Present Illness Timing: Last night - Additonal information Additional information: 55-year-old female who feels that she is immunocompromised after having surgery to remove the lymph nodes in her inguinal area for vulvar cancer has developed another infection on her buttocks. She has had cellulitis there a number of times and she developed some symptoms last night just had some general aches and had a bit of a fever when she looked at her buttocks this morning she realized she had cellulitis there again and she has come to the emergency department for treatment. She has had prior treatments to included injection of Rocephin and she was these placed onto Keflex she has had a treatment failure and had to be hospitalized twice. She has had 18 prior episodes. She has a bit of a headache she had a little bit of nausea she is not had any vomiting she has had an episode of diarrhea and she otherwise does not feel horribly ill. Review of Systems Constitutional: reports: Fever Eyes: denies: Decreased vision Ears: denies: Ear pain Nose: denies: Rhinorrhea / runny nose, Congestion Throat: denies: Sore throat Cardiac: denies: Chest pain / pressure Respiratory: denies: Dyspnea, Cough GI: reports: Nausea, Diarrhea. 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 : None HEENT: None Psych: None Musculoskeletal: None Derm: None - Past Surgical History Past Surgical History: Yes /PLATE AND FRAME FILTER OPERATOR: Tubal ligation - Present Medications Home Medications: Ambulatory Orders Medication Instructions Recorded Confirmed Fluticasone [Flonase] 1 spray INH DAILY 12/20/13 07/16/20 Levothyroxine [Synthroid] 25 mcg PO DAILY 12/20/13 07/16/20 Olopatadine HCl [Patanol] 1 drop EACHEYE DAILY 01/09/15 07/16/20 Butalb/Acetaminophen/Caffeine 1 tab PO DAILY PRN 04/16/15 07/16/20 [Fioricet 50-300-40 mg Capsule] Cefdinir 300 mg PO BID #14 tab 07/16/20 cephALEXin [Keflex] 500 mg PO Q6H #28 cap 06/01/21 - Allergies Allergies/Adverse Reactions: Allergies Allergy/AdvReac Type Severity Reaction Status Date / Time No Known Drug Allergies Allergy Verified 06/01/21 11:46 - Social History Does the pt smoke?: No Smoking Status: Never smoker Does the pt drink ETOH?: No Does the pt have substance abuse?: No - Immunizations Immunizations are current?: Yes - POLST Patient has POLST: Yes PD ED PE NORMAL - Vitals Vital signs reviewed: Yes (hypertensive ) - General General: Alert and oriented X 3, No acute distress, Well developed/nourished - HEENT HEENT: Atraumatic, PERRL, EOMI - Respiratory Respiratory: No respiratory distress - Back Back: No CVA TTP, No spinal TTP - Derm Derm: Normal color, Warm and dry, Other (erthema blanching to the right buttocks extensive and "patchy" No abscess) - Extremities Extremities: No deformity, No edema - Neuro Neuro: Alert and oriented X 3, process trainer 2-12 intact, No motor deficit, No sensory deficit, Normal speech Eye Opening: Spontaneous Motor: Obeys Commands Verbal: Oriented GCS Score: 15 - Psych Psych: Normal mood, Normal affect Results - Vitals Vitals: Vital Signs - 24 hr 06/01/21 11:46 Temperature 36.7 C Heart Rate 82 Respiratory 18 Rate Blood Pressure 149/94 H O2 Saturation 98 Oxygen O2 Source Room air PD MEDICAL DECISION MAKING - ED course Complexity details: considered differential, d/w patient ED course: 55-year-old female with a history of recurrent cellulitis has cellulitis again to the right buttocks. There is some atypical appearance to it and that is patchy in nature. She has had prior history with this multiple times we will treat her similarly. She is given a gram of Rocephin IM we will place her onto Keflex. Departure - Departure Disposition: 01 Home, Self Care Clinical Impression: Cellulitis Qualifiers: Site of cellulitis: buttock Qualified Code(s): L03.317 - Cellulitis of buttock Condition: Stable Instructions: ED Infec Skin Cellulitis Follow-Up: ETHAN HAZEL MD [Primary Care Provider] - Prescriptions: cephALEXin [Keflex] 500 mg PO Q6H #28 cap Comments: Charmaine, today it looks like you have a recurrence of cellulitis on your right buttocks. We have given you a gram of Rocephin IM and there is a prescription for Keflex at the community pharmacy across the street here in [place]. If you have worsening of your symptoms despite the start of antibiotic treatment return to the emergency department for admission.
== END 2021-06-01 13:10 | disposition home or self-care (01) ==
LOC: ED 10:56
DX: L03.317 Cellulitis of buttock (principal)
CPT/HCPCS: 96372; 99283

== ENCOUNTER 2021-06-20 11:04 | Inpatient (IN) | payer OTHER ==
[2021-06-20] MEDS ORDERED: cefTRIAXone 1 GM in SODIUM CHLORIDE 0.9% MINIBAG 100 ML IV STA (12:58)
--- NOTE | 2021-06-20 13:00 | ED Physician Documentation ---
History of Present Illness - Stated complaint Stated Complaint: ACHY/RT LEG RASH - Chief complaint Chief Complaint: Wound - History obtained from History obtained from: Patient - History of Present Illness Timing: Today - Additonal information Additional information: 55-year-old female with a history of recurrent cellulitis has developed cellulitis again on the lateral aspect of her right thigh.She has had this a number of times and today she feels like her illness came on rapidly. She feels ill as opposed to the last time when she did not feel so well but had a lot of redness. She is wondering if she might be septic. She does state that she responded to the treatment given previously last month which was a shot of Rocephin and 7 days of Keflex. Review of Systems Constitutional: reports: Fever, Chills, Myalgias, Fatigue, Sweats Eyes: denies: Decreased vision Ears: denies: Ear pain Nose: denies: Congestion Throat: denies: Sore throat Cardiac: denies: Chest pain / pressure Respiratory: denies: Dyspnea, Cough GI: denies: Abdominal Pain, Nausea, Vomiting : denies: Dysuria, Frequency Skin: reports: Rash Musculoskeletal: reports: Extremity pain. 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 : None HEENT: None Psych: None Musculoskeletal: None Derm: None - Past Surgical History Past Surgical History: Yes /HYDROSTATIC TUBING TESTER: Tubal ligation - Present Medications Home Medications: Ambulatory Orders Medication Instructions Recorded Confirmed Fluticasone [Flonase] 1 spray INH DAILY 12/20/13 07/16/20 Levothyroxine [Synthroid] 25 mcg PO DAILY 12/20/13 07/16/20 Olopatadine HCl [Patanol] 1 drop EACHEYE DAILY 01/09/15 07/16/20 Butalb/Acetaminophen/Caffeine 1 tab PO DAILY PRN 04/16/15 07/16/20 [Fioricet 50-300-40 mg Capsule] Cefdinir 300 mg PO BID #14 tab 07/16/20 cephALEXin [Keflex] 500 mg PO Q6H #28 cap 06/01/21 - Allergies Allergies/Adverse Reactions: Allergies Allergy/AdvReac Type Severity Reaction Status Date / Time No Known Drug Allergies Allergy Verified 06/20/21 11:20 - Social History Does the pt smoke?: No Smoking Status: Never smoker Does the pt drink ETOH?: No Does the pt have substance abuse?: No - Immunizations Immunizations are current?: Yes - POLST Patient has POLST: Yes PD ED PE NORMAL - Vitals Vital signs reviewed: Yes (tachy and hypertensive) - General General: Alert and oriented X 3, No acute distress, Well developed/nourished - HEENT HEENT: Atraumatic, PERRL, EOMI - Neck Neck: Supple, no meningeal sign - Cardiac Cardiac: RRR, No murmur - Respiratory Respiratory: No respiratory distress, Clear bilaterally - Abdomen Abdomen: Soft, Non tender - Derm Derm: Normal color, Warm and dry, Other (erythema to the skin overlying the left lateral thigh is patchy and sparse. ) - Extremities Extremities: No deformity, No edema, Other (proximal right lateral thigh erythema without mass. ) - Neuro Neuro: Alert and oriented X 3, warp trucker 2-12 intact, No motor deficit, No sensory deficit, Normal speech Eye Opening: Spontaneous Motor: Obeys Commands Verbal: Oriented GCS Score: 15 - Psych Psych: Normal mood, Normal affect Results - Vitals Vitals: Vital Signs - 24 hr 06/20/21 06/20/21 06/20/21 11:15 12:58 14:00 Temperature 37.1 C 38.0 C H Heart Rate 103 H 103 H 109 H Respiratory 20 18 19 Rate Blood Pressure 171/88 H 135/84 H 148/83 H O2 Saturation 97 99 98 Oxygen O2 Source Room air - Labs Labs: Laboratory Tests 06/20/21 06/20/21 13:09 13:09 WBC 12.9 H RBC 4.46 Hgb 13.5 Hct 40.6 MCV 91.0 MCH 30.3 MCHC 33.3 RDW 13.0 Plt Count 259 MPV 9.4 Neut # (Auto) 11.1 H Lymph # (Auto) 1.0 L [place] # (Auto) 0.7 Eos # (Auto) 0.0 Baso # (Auto) 0.1 Absolute Nucleated RBC 0.00 Nucleated RBC % 0.0 Sodium 139 Potassium 3.9 Chloride 102 Carbon Dioxide 25 Anion Gap 12.0 BUN 18 Creatinine 0.7 Estimated GFR (MDRD) 88 L Glucose 102 H Calcium 10.3 Total Bilirubin 0.4 AST 21 ALT 19 Alkaline Phosphatase 83 Total Protein 8.6 H Albumin 4.9 Globulin 3.7 Albumin/Globulin Ratio 1.3 Lipase 28 PD MEDICAL DECISION MAKING - ED course Complexity details: reviewed old records, reviewed results, re-evaluated patient, considered differential, d/w patient ED course: 55-year-old female with recurrent cellulitis to the right thigh has recurrence of her cellulitis she feels ill at this time and blood cultures are obtained. She is febrile she is tachycardic she is administered intravenous Rocephin and IV saline as well as tylenol. She continues to feel ill and is tachy to 120. The patient feels similar to when she has had sepsis with this. Rapid onset, unchecked chills, fever. By the numbers she is tachy with good blood pressure. Departure - Departure Disposition: [facility] DC/Xfer Clinical Impression: Cellulitis of right thigh Sepsis Qualifiers: Sepsis type: sepsis due to unspecified organism Sepsis acute organ dysfunction status: without acute organ dysfunction Qualified Code(s): A41.9 - Sepsis, unspecified organism Condition: Stable Follow-Up: ETHAN HAZEL MD [Primary Care Provider] -
[2021-06-20 13:14] LABS: BASOPHILS # (AUTO) 0.1 10^3/uL (0.0-0.1); BASOPHILS % (AUTO) 0.5 %; EOSINOPHILS % (AUTO) 0.2 %; HCT - HEMATOCRIT 40.6 % (37.0-47.0); HGB - HEMOGLOBIN 13.5 g/dL (12.0-16.0); LYMPHOCYTES % (AUTO) 7.7 %; MEAN CORPUSCULAR HEMOGLOBIN 30.3 pg (27.0-31.0); MEAN CORPUSCULAR HGB CONC 33.3 g/dL (32.0-36.0); MEAN PLATELET VOLUME 9.4 fL (7.9-10.8); MONOCYTES # (AUTO) 0.7 10^3/uL (0.0-1.0); MONOCYTES % (AUTO) 5.2 %; NEUTROPHILS # (AUTO) 11.1 10^3/uL (1.5-6.6); NEUTROPHILS % (AUTO) 86.1 %; PLT - PLATELET COUNT 259 10^3/uL (130-450); RED BLOOD COUNT 4.46 10^6/uL (4.20-5.40); WHITE BLOOD COUNT 12.9 x10^3/uL (4.8-10.8)
[2021-06-20 13:31] LABS: ALBUMIN 4.9 g/dL (3.2-5.5); ALBUMIN/GLOBULIN RATIO 1.3 (1.0-2.2); BILIRUBIN,TOTAL 0.4 mg/dL (0.2-1.0); CALCIUM 10.3 mg/dL (8.5-10.3); CREATININE 0.7 mg/dL (0.4-1.0); POTASSIUM 3.9 mmol/L (3.5-5.0); TOTAL PROTEIN 8.6 g/dL (6.7-8.2)
[2021-06-20] MEDS ORDERED: ACETAMINOPHEN 325 MG TABLET PO STA (14:21)
[2021-06-20] MEDS ORDERED: SODIUM CHLORIDE 0.9% 1,000 ML IV STA (14:21)
[2021-06-20] MEDS ORDERED: ACETAMINOPHEN 325 MG TABLET PO PRN (14:58)
[2021-06-20] MEDS ORDERED: ONDANSETRON ODT 4 MG TABLET TL PRN (14:58)
[2021-06-20] MEDS ORDERED: oxyCODONE 5 MG TABLET PO PRN (14:58)
[2021-06-20] MEDS ORDERED: SODIUM CHLORIDE FLUSH 0.9% 10 ML SYRINGE IVP PRN (14:58)
[2021-06-20] MEDS ORDERED: ONDANSETRON 4 MG/2 ML VIAL IVP PRN (14:58)
[2021-06-20] MEDS ORDERED: SODIUM CHLORIDE 0.9% 1,000 ML IV SCH (15:00)
[2021-06-20] MEDS ORDERED: cefTRIAXone 1 GM VIAL IVP STA (15:07)
--- NOTE | 2021-06-20 15:13 | HISTORY & PHYSICAL EXAMINATION ---
Chief Complaint - Chief Complaint Chief Complaint: acute onset red, painful skin of leg History of Present Illness - Admitted From Admitted From:: home - History Obtained From Records Reviewed: [facility] History obtained from: patient and Dr. Valverde Exam Limitations: none - History of Present Illness HPI Comment/Other: 4-year-old white female who does not have a past medical history of diabetes, but has been having infections of her skin off and on for over 11 years. Usually over the buttocks or lower extremities. She is a patient [facility] and is not followed by local providers. 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 With that was a resection of the lymph glands in that right groin. Her first episode of cellulitis was with sepsis. She was hospitalized here at our hospital in 2011 and was hospitalized for 7 days and feels that she had acute kidney injury not only from sepsis but from the vancomycin used. She is very leery of using vancomycin. She has had 19 episodes of cellulitis. Last episode of cellulitis was May 2021. This was in her buttock area. She was treated with IM rocephine and then po abx and did well. She does not have a diagnosis of venous stasis or varicosities. Today she had an abrupt onset of myalgias, chills, and not feeling well. This i s the worst she is ever felt. She feels "out of it", has nausea. She denies chest pain, shortness of breath. She has a new red area in the right upper calf very similar to previous areas of cellulitis. This has been the worst she is ever felt with any episode of cellulitis in the fast as it is ever come on. She also states that this is the most pain she has ever had. She has that there is an area of redness along the right lateral thigh that is flat, irregular and hot. She also has an area in the right medial thigh just above the knee. The entire thigh region feels very hot, tight, swollen, and tender to move. She has never felt this before. There has been no antecedent trauma. In the emergency room her temperature was initially 37.1 and then virgie to 38 degrees. Pulse has been consistently tachycardic at 103-109. Blood pressure was initially 171/88 and has come down to 148/83. Respirations are 20 and unlabored. She is 97% on room air. She received 1 L of fluid wide open, antibiotics, Tylenol. This was over the course of 2 hours. In spite of this, she still feels terrible. The redness and heat in her skin of her right calf are more painful than usual. As such emergency room provider would like us to admit the patient for cellulitis. She presents with hemodynamic instability of tachycardia that persists despite appropriate treatment. In a clinical presentation that is very acute, rapidly progressive. Very different than her previous presentations. I have asked the emergency room doctor to make sure she has had her antibiotics, and have asked him to please do a lactic acid. History - Past Medical History Cardiovascular: reports: High cholesterol Respiratory: reports: None Neuro: reports: Headaches, Migraines Endocrine/Autoimmune: reports: HyPOthyroidism GI: reports: None MACHINE TAPER: reports: Other () : reports: None HEENT: reports: None Psych: reports: None Musculoskeletal: reports: None Derm: reports: None MRSA Hx?: No Other Past Medical History: vulvar cancer 1996 w resection of labia and LN dissection. - Past Surgical History /MACHINE TAPER: reports: Tubal ligation - Family & Social History Family History Comment/Other: Mom ovarian cancer at the age of 70. Dad at age 67 of overwhelming sepsis. She says she does not want to of sepsis like her father. 2 brothers and 1 sister. Completely healthy. No cancer, no skin conditions, no diabetes, no heart disease. 3 children are completely healthy Living arrangement: At home Living Situation: With spouse/s.o. Social History Notes: She has been 3 times. She says her third marriage is now been ongoing for 23 years. 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 She does not smoke. She rarely drinks. She has no history of recreational substance abuse. She and her live in their own home - Substance History Use: Uses substance without health or social issues: NONE Abuse: Recurrent use of substance despite neg consequences: NONE Dependence: Experiences withdrawal or developed tolerances: NONE - POLST Patient has POLST: Yes POLST Status: Full Code Meds/Allgy - Home Medications Home Medications: Ambulatory Orders Medication Instructions Recorded Confirmed Fluticasone [Flonase] 1 spray INH DAILY 12/20/13 06/20/21 Levothyroxine [Synthroid] 75 mcg PO DAILY 12/20/13 06/20/21 Olopatadine HCl [Patanol] 1 drop EACHEYE DAILY 01/09/15 06/20/21 Butalb/Acetaminophen/Caffeine 1 tab PO BID PRN 04/16/15 06/20/21 [Fioricet 50-300-40 mg Capsule] - Allergies Allergies/Adverse Reactions: Allergies Allergy/AdvReac Type Severity Reaction Status Date / Time No Known Drug Allergies Allergy Verified 06/20/21 11:20 Review of Systems - Constitutional Constitutional: reports: Fatigue, Fever, Chills, Malaise, Weakness, Poor appetite, Other (All of these complaints started suddenly, today while at work) - Eyes Eyes: denies: Pain, Irritation, Amaurosis, Blurred vision - Ears, Nose & Throat Ears, Nose & Throat: denies: Ear pain, Hearing loss, Hearing aids, Tinnitus, Vertigo - Cardiovascular Cariovascular: denies: Irregular heart rate, Palpitations, Chest pain, Edema - Respiratory Respiratory: denies: Cough, Sputum production, Wheezing, Snoring - Gastrointestinal Gastrointestinal: reports: Nausea. denies: Abdominal pain, Abdominal distention, Constipation, Diarrhea, Change in bowel habits, Rectal bleeding, Vomiting, Bile emesis - Genitourinary Genitourinary: denies: Dysuria, Frequency, Urgency, Hematuria - Musculoskeletal Musculoskeletal: reports: Muscle pain (right thigh is very painful, entire thigh), Muscle aches - Integumentary Integumentary: reports: Rash (right lateral thigh w flat irregular red rash, and right distal medial thigh w diffuse SQ redness, induration.) - Neurological Neurological: reports: General weakness, Headache, Memory problems (right now can't think straight, foggy) - Psychiatric Psychiatric: denies: Depression, Anxiety, Suicidal - Endocrine Endocrine: denies: Polyuria, Polydypsia, Polyphagia - Hematologic/Lymphatic Hematologic/Lymphatic: denies: Anemia, Bruising, Petechiae Prior Level of Functionality: Please be independent with activities of daily living. No use of durable medical equipment. Exam - Vital Signs Reviewed Vital Signs: Yes Vital Signs: Vital Signs x48h Temp Pulse Resp BP Pulse Ox 06/20/21 14:00 38.0 C H 109 H 19 148/83 H 98 06/20/21 12:58 103 H 18 135/84 H 99 06/20/21 11:15 37.1 C 103 H 20 171/88 H 97 - Physical Exam General Appearance: positive: Alert, Moderate distress (she is alarmed at how badly she feels and how foggy she is and the rigors and thigh pain don't help), Lethargic Eyes Bilateral: positive: PERRL, EOMI ENT: positive: No signs of dehydration Neck: positive: No JVD Respiratory: positive: No respiratory distress. negative: Wheezes, Rales, Rhonchi Cardiovascular: positive: Regular rate & rhythm, Tachycardia. negative: Gallop/S4, Friction rub Peripheral Pulses: positive: 1+ Abdomen: positive: Non-tender, No organomegaly, Nml bowel sounds, No distention Skin: positive: Warm, Dry, Other (right lateral thigh w the rash on ROS and right medial distal thigh w diffuse pinkness and heat and swelling.) Extremities: positive: Full ROM, Pedal edema (the entire right thigh is about 25-30% larger than the L but she says that's the way it always is since the surgery 1996), Other (tender thigh muscles all thru out) Neurologic/Psychiatric: positive: Oriented x3, CN's nml (2-12), Motor nml, Sensation nml Sepsis Event Note (H) - Evaluation Current Stage of Sepsis: Sepsis - Sepsis Criteria Sepsis Criteria: Recorded Temperature greater than 38.3C or Less than 36C, Recorded Heart Rate greater than 90 bpm, WBC count greater than 12,000 or less than 4000, Metabolic: lactate > 2 mmol/L Conclusion/Plan - Problem List (1) Sepsis Conclusion/Plan: At this time the sepsis appears to be the cellulitis. It is recurrent. Repetitive. The only thing that is alarming me is that it is much worse than it usually is. She does not even remember being this sick back in 2011. She is already received 1 L in the emergency room and I will give her 2 more liters wide-open, give her another gram of Rocephin. [facility] antibiotic guide recommends penicillin and if penicillin not tolerated then the cephalosporin. Since she has already been started on cephalosporin I will continue that.The ER physician has already ordered blood cultures. Plan: Inpatient admission Rocephin [address] of the leg and lower pelvis. Her pain is out of proportion to physical exam findings. Her sepsis is out of proportion to physical exam findings. I am looking for subcutaneous or muscle infection. Daily CBC Daily C-reactive protein Get the old records from 2012 Recheck lactic acid after 3 L Qualifiers: Sepsis type: sepsis due to unspecified organism Sepsis acute organ dysfunction status: without acute organ dysfunction Qualified Code(s): A41.9 - Sepsis, unspecified organism (2) Cellulitis of right thigh Conclusion/Plan: Current cellulitis due to lymphedema of her right leg. The lymphedema is due to lymph node resection in the right groin. Right now we will get her through this current episode of infection. For the future I would recommend lymphedema therapy with a specialized physical therapist, I would also recommend compression stockings every day for the rest of her life. (3) HTN (hypertension) Conclusion/Plan: She states that she has high blood pressure by history. But she is not on any medications. At this time blood pressure is elevated which is reassuring in the face of sepsis. We will hold off on any medications until infection is controlled. Would treat if systolic blood pressure gets above 175. Qualifiers: Hypertension type: primary hypertension Qualified Code(s): I10 - Essential (primary) hypertension (4) Hypothyroid Conclusion/Plan: Check TSH in the morning. Resume her Synthroid. Qualifiers: Hypothyroidism type: acquired Qualified Code(s): E03.9 - Hypothyroidism, unspecified - Lab Results Lab results reviewed: Yes Jaciel Bones: 06/20/21 13:09 06/20/21 13:09 Core Measures - Anticipated LOS I expect patient to be DC'd or transferred within 96 hours.: Yes - DVT/VTE - Prophylaxis VTE/DVT Device ordered at admit?: Yes
[2021-06-20] MEDS ORDERED: cefTRIAXone 1 GM VIAL ONE (16:07)
--- NOTE | 2021-06-20 16:38 | PHARMACY PROGRESS NOTE ---
- Best Possible Medication History Admit Date and Time: 06/20/21 1458 Processed by: Nursing Medication History completed: Yes Patient Interview: Completed Secondary Source(s): Pharmacy records, Insurance records As the person ultimately responsible for medication therapy, providers are able to order a medication from an existing home medication list in [facility] via the "Reconcile Routine" prior to Confirmation of that medication by community support associate. Such practice is discouraged except when the physician, in their clinical judgment, deems that a medical need exists for a medication without regard to previous use.
[2021-06-20 16:46] LABS: B. PARAPERTUSSIS- RESP PCR PAN NOT DETECTED; B. PERTUSSIS- RESP PCR PANEL NOT DETECTED; C. PNEUMONIAE- RESP PCR PANEL NOT DETECTED; CORONAVIRUS 229E-RESP PCR NOT DETECTED; CORONAVIRUS HKU1-RESP PCR NOT DETECTED; CORONAVIRUS NL63-RESP PCR NOT DETECTED; CORONAVIRUS OC43-RESP PCR NOT DETECTED; HUMAN METAPNEUMOVIRUS NOT DETECTED; INFLUENZA A- RESP PCR PANEL NOT DETECTED; INFLUENZA B - RESP PCR PANEL NOT DETECTED; M. PNEUMONIAE- RESP PCR PANEL NOT DETECTED; PARAINFLUENZA VIRUS 1 NOT DETECTED; PARAINFLUENZA VIRUS 2 NOT DETECTED; PARAINFLUENZA VIRUS 3 NOT DETECTED; PARAINFLUENZA VIRUS 4 NOT DETECTED; RHINOVIRUS/ENTEROVIRUS NOT DETECTED; RSV- RESP PCR PANEL NOT DETECTED; SARS-CoV-2 -RESP PCR PANEL NOT DETECTED
[2021-06-20] MEDS: SODIUM CHLORIDE FLUSH 0.9% 10 ML SYRINGE IVP SCH (16:58)
[2021-06-20] MEDS: SODIUM CHLORIDE 0.9% 1,000 ML IV SCH ×2 (16:59→18:01)
[2021-06-20 18:14] LABS: BASOPHILS # (AUTO) 0.1 10^3/uL (0.0-0.1); BASOPHILS % (AUTO) 0.3 %; EOSINOPHILS % (AUTO) 0.1 %; HCT - HEMATOCRIT 35.7 % (37.0-47.0); HGB - HEMOGLOBIN 11.8 g/dL (12.0-16.0); LYMPHOCYTES # (AUTO) 0.9 10^3/uL (1.5-3.5); LYMPHOCYTES % (AUTO) 6.2 %; MEAN CORPUSCULAR HEMOGLOBIN 30.4 pg (27.0-31.0); MEAN CORPUSCULAR HGB CONC 33.1 g/dL (32.0-36.0); MEAN PLATELET VOLUME 9.8 fL (7.9-10.8); NEUTROPHILS # (AUTO) 12.5 10^3/uL (1.5-6.6); PLT - PLATELET COUNT 227 10^3/uL (130-450); RED BLOOD COUNT 3.88 10^6/uL (4.20-5.40); RED CELL DISTRIBUTION WIDTH 12.9 % (12.0-15.0); WHITE BLOOD COUNT 14.5 x10^3/uL (4.8-10.8)
[2021-06-20] MEDS ORDERED: iohexoL-300 100 ML VIAL ONE (18:24)
[2021-06-20] MEDS: BUTALB/ACETAM/CAFF 50/325/40MG TABLET PO PRN ×2 (18:46→23:51)
[2021-06-20] MEDS ORDERED: iohexoL-300 100 ML VIAL IVP ONE (19:21)
--- NOTE | 2021-06-20 20:04 | CT Report ---
PROCEDURE: LOWER EXTREMITY W - RT INDICATIONS: fever, cellulitis, severe pain TECHNIQUE: After the administration of intravenous contrast material, 5 mm axial sections were obtain ed from the iliac crests through the feet, with coronal and sagittal reformats. Dose reduction techni ques were employed. COMPARISON: None. FINDINGS: Bones: No acute fracture or dislocation. No focal osseous cortical destruction is seen. No suspicious osteolytic or osteoblastic lesion. Soft tissues: Post surgical changes are seen in the right inguinal region. No bulky inguinal lymphade nopathy. A right external iliac lymph node is mildly prominent, measuring 0.8 cm in short axis diamet er. There is asymmetry of the subcutaneous fat, which is significantly greater on the right than on t he left throughout the pelvis and right lower extremity. No significant edema or skin thickening is s een. There is no subcutaneous gas. The musculature is symmetric and bulk. There is again demonstrated in the subcutaneous tissues of the medial right lower extremity. The included portions of the pelvis demonstrate no acute abnormality. If diverticula are seen in the colon without signs of acute divert iculitis. Normal appendix. IMPRESSION: 1.Asymmetric hypertrophy of the subcutaneous adipose tissues throughout the right lower extremity is suspicious for lipedema. 2.No significant subcutaneous edema or fluid collection. No soft tissue gas. No intermuscular fascial edema. 3.No acute osseous abnormality. Reviewed by: Lito Contreras MD on 06/20/2021 8:02 PM PST Approved by: Lito Contreras MD on 06/20/2021 8:02 PM PST Station ID: [id number]
--- NOTE | 2021-06-20 20:07 | CT Report ---
PROCEDURE: PELVIS W INDICATIONS: fever, severe pain, cellulits CONTRAST: IV CONTRAST: Isovue 300 ml: 100 PO CONTRAST: *NO PO CONTRAST TECHNIQUE: After the administration of intravenous contrast, 5 mm thick sections acquired from the iliac crests through the feet. 5 mm thick coronal and sagittal reformats were acquired. For radiation dose reduc tion, the following was used: automated exposure control, adjustment of mA and/or kV according to pa tient size. COMPARISON: None. FINDINGS: Please note that the images for this exam are included on the lower extremity CT exam performed at [facility] same time (accession# [id number]). Bones: No acute fracture or dislocation. No focal osseous cortical destruction is seen. No suspicious osteolytic or osteoblastic lesion. Soft tissues: Post surgical changes are seen in the right inguinal region. No bulky inguinal lymphade nopathy. A right external iliac lymph node is mildly prominent, measuring 0.8 cm in short axis diamet er. There is asymmetry of the subcutaneous fat, which is significantly greater on the right than on t he left throughout the pelvis and right lower extremity. No significant edema or skin thickening is s een. There is no subcutaneous gas. The musculature is symmetric and bulk. There is again demonstrated in the subcutaneous tissues of the medial right lower extremity. The included portions of the pelvis demonstrate no acute abnormality. If diverticula are seen in the colon without signs of acute divert iculitis. Normal appendix. IMPRESSION: Please note that the images for this exam are included on the lower extremity CT exam performed at [facility] same time (accession# [id number]). 1.Asymmetric hypertrophy of the subcutaneous adipose tissues throughout the right lower extremity is suspicious for lipedema. 2.No significant subcutaneous edema or fluid collection. No soft tissue gas. No intermuscular fascial edema. 3.No acute osseous abnormality. Reviewed by: Lito Contreras MD on 06/20/2021 8:06 PM PST Approved by: Lito Contreras MD on 06/20/2021 8:06 PM PST Station ID: [id number]
[2021-06-20] MEDS ORDERED: BUTALB/ACETAM/CAFF 50/325/40MG TABLET PO ONE (21:29)
[2021-06-21] MEDS: SODIUM CHLORIDE FLUSH 0.9% 10 ML SYRINGE IVP SCH ×3 (03:58→17:06)
[2021-06-21] MEDS: BUTALB/ACETAM/CAFF 50/325/40MG TABLET PO PRN (05:03)
[2021-06-21 05:37] LABS: BASOPHILS # (AUTO) 0.1 10^3/uL (0.0-0.1); BASOPHILS % (AUTO) 0.5 %; EOSINOPHILS % (AUTO) 0.1 %; HCT - HEMATOCRIT 32.8 % (37.0-47.0); HGB - HEMOGLOBIN 10.9 g/dL (12.0-16.0); LYMPHOCYTES # (AUTO) 1.3 10^3/uL (1.5-3.5); LYMPHOCYTES % (AUTO) 12.9 %; MEAN CORPUSCULAR HEMOGLOBIN 30.4 pg (27.0-31.0); MEAN CORPUSCULAR HGB CONC 33.2 g/dL (32.0-36.0); MEAN CORPUSCULAR VOLUME 91.6 fL (81.0-99.0); MEAN PLATELET VOLUME 9.8 fL (7.9-10.8); MONOCYTES # (AUTO) 0.7 10^3/uL (0.0-1.0); MONOCYTES % (AUTO) 6.7 %; NEUTROPHILS # (AUTO) 8.1 10^3/uL (1.5-6.6); NEUTROPHILS % (AUTO) 79.3 %; PLT - PLATELET COUNT 208 10^3/uL (130-450); RED BLOOD COUNT 3.58 10^6/uL (4.20-5.40); RED CELL DISTRIBUTION WIDTH 13.2 % (12.0-15.0); WHITE BLOOD COUNT 10.2 x10^3/uL (4.8-10.8)
[2021-06-21 05:54] LABS: CALCIUM 8.7 mg/dL (8.5-10.3); CREATININE 0.8 mg/dL (0.4-1.0); CRP - C-REACTIVE PROTEIN 12.7 mg/dL (0-1.0); POTASSIUM 3.5 mmol/L (3.5-5.0)
[2021-06-21] MEDS: cefTRIAXone 2 GM in SODIUM CHLORIDE 0.9% MINIBAG 100 ML IV SCH (08:13)
[2021-06-21] MEDS: ENOXAPARIN 40 MG/0.4 ML SYRINGE SUBQ SCH (08:13)
[2021-06-21] MEDS: LEVOTHYROXINE 75 MCG TABLET PO SCH (08:13)
[2021-06-21] MEDS: FLUTICASONE NASAL SPRAY NAS SCH (08:14)
[2021-06-21] MEDS ORDERED: OLOPATADINE HCL EACHEYE SCH (09:00)
--- NOTE | 2021-06-21 11:57 | PROVIDER PROGRESS NOTE ---
Assessment/Plan - Problem List (1) Sepsis Qualifiers: Sepsis type: sepsis due to unspecified organism Sepsis acute organ dysfunction status: without acute organ dysfunction Qualified Code(s): A41.9 - Sepsis, unspecified organism Assessment/Plan: Secondary to cellulitis on the right upper thigh. Improving. Patient is currently on Rocephin 2 g IV. We will continue. White blood cell count improved from 14.5 down to 10.2. Patient is afebrile. Blood cultures are pending. Lactic acid yesterday was 3.0. Repeat lactic acid pending. IV hydration with normal saline at 100 mL/h. (2) Cellulitis of right thigh Assessment/Plan: Patient is currently on Rocephin 2 g IV. We will continue. White blood cell count improved from 14.5 down to 10.2. Patient is afebrile. Blood cultures are pending. Lactic acid yesterday was 3.0. Repeat lactic acid pending. IV hydration with normal saline at 100 mL/h. (3) HTN (hypertension) Qualifiers: Hypertension type: primary hypertension Qualified Code(s): I10 - Essential (primary) hypertension Assessment/Plan: Currently normotensive. Patient does not take any antihypertensive at home. (4) Hypothyroid Qualifiers: Hypothyroidism type: acquired Qualified Code(s): E03.9 - Hypothyroidism, unspecified Assessment/Plan: On Synthroid 75 mcg p.o. daily AC. - Current Meds Current Meds: Current Medications Generic Name Dose Route Start Last Admin Trade Name Freq PRN Reason Stop Dose Admin Acetaminophen/Butalbital/Caffeine 1 tab 06/20/21 18:29 06/21/21 05:03 Butalb/Acetam/Caff 50/325/40mg Tablet PO 1 tab Q4HR PRN Administration HEADACHE Enoxaparin Sodium 40 mg 06/21/21 09:00 06/21/21 08:13 Enoxaparin 40 Mg/0.4 Ml Syringe SUBQ 40 mg DAILY GABRIEL Administration Fluticasone Propionate 1 sprays 06/21/21 09:00 06/21/21 08:14 Fluticasone Nasal [place] KAYLYN 1 sprays DAILY GABRIEL Administration Ceftriaxone Sodium 2 gm/ 100 mls @ 200 mls/hr 06/21/21 09:00 06/21/21 09:40 Sodium Chloride IV Infused DAILY GABRIEL Infusion Levothyroxine Sodium 75 mcg 06/21/21 08:00 06/21/21 08:13 Levothyroxine 75 Mcg Tablet PO 75 mcg QDAC GABRIEL Administration Ondansetron HCl 4 mg 06/20/21 14:58 06/20/21 17:48 Ondansetron 4 Mg/2 Ml Vial IVP 4 mg Q6HR PRN Administration Nausea / Vomiting Sodium Chloride 10 ml 06/20/21 17:00 06/21/21 08:15 Sodium Chloride Flush 0.9% 10 Ml Syringe IVP 10 ml 0100,0900,1700 GABRIEL Administration - Lab Result Fish Bone Diagrams: 06/21/21 05:03 06/21/21 05:03 Subjective - Subjective Patient Reports: Other (Patient was resting comfortably in bed at time of exam. Reports feeling better today than at presentation yesterday. Redness apprec iable on right lower extremity. It has not spread. Denies any other complaints.) Objective Vital Signs: Vital Signs - 24 hr 06/20/21 06/20/21 06/20/21 12:58 14:00 16:00 Temperature 38.0 C H 37.7 C Heart Rate 103 H 109 H 108 H Heart Rate [ Brachial] Respiratory 18 19 20 Rate Blood Pressure 135/84 H 148/83 H 158/97 H Blood Pressure [Right Brachial artery] O2 Saturation 99 98 98 06/20/21 06/20/21 06/20/21 16:41 20:37 23:40 Temperature 37.5 C 37.2 C 37.3 C Heart Rate Heart Rate [ 103 H 106 H 100 Brachial] Respiratory 19 20 16 Rate Blood Pressure Blood Pressure 169/91 H 128/61 116/58 L [Right Brachial artery] O2 Saturation 99 96 97 06/21/21 06/21/21 05:10 07:55 Temperature 37.2 C 37.1 C Heart Rate Heart Rate [ 89 78 Brachial] Respiratory 18 18 Rate Blood Pressure Blood Pressure 118/64 113/75 [Right Brachial artery] O2 Saturation 96 98 Oxygen O2 Source Room air I&O (Last 24 Hrs): Intake and Output Totals x24h 06/19/21 06/20/21 06/21/21 23:59 23:59 23:59 Intake Total 3550 1040 Balance 3550 1040 General: Alert, Oriented x3, Mild distress HEENT: PERRLA, EOMI Neck: Supple, No JVD Neuro: Alert Cardiovascular: Regular rate, No murmurs Respiratory: Chest non-tender, No respiratory distress, Breath sounds nml Abdomen: Normal bowel sounds, Soft, No tenderness, No masses Extremities: No clubbing, No cyanosis, No edema Comments/Notes: redness on medial and lateral aspect of right upper thigh - Results Results: Laboratory Results WBC 10.2 x10^3/uL (4.8-10.8) 06/21/21 05:03 RBC 3.58 10^6/uL (4.20-5.40) L 06/21/21 05:03 Hgb 10.9 g/dL (12.0-16.0) L 06/21/21 05:03 Hct 32.8 % (37.0-47.0) L 06/21/21 05:03 MCV 91.6 fL (81.0-99.0) 06/21/21 05:03 MCH 30.4 pg (27.0-31.0) 06/21/21 05:03 MCHC 33.2 g/dL (32.0-36.0) 06/21/21 05:03 RDW 13.2 % (12.0-15.0) 06/21/21 05:03 Plt Count 208 10^3/uL (130-450) 06/21/21 05:03 MPV 9.8 fL (7.9-10.8) 06/21/21 05:03 Neut # (Auto) 8.1 10^3/uL (1.5-6.6) H 06/21/21 05:03 Lymph # (Auto) 1.3 10^3/uL (1.5-3.5) L 06/21/21 05:03 [place] # (Auto) 0.7 10^3/uL (0.0-1.0) 06/21/21 05:03 Eos # (Auto) 0.0 10^3/uL (0.0-0.7) 06/21/21 05:03 Baso # (Auto) 0.1 10^3/uL (0.0-0.1) 06/21/21 05:03 Absolute Nucleated RBC 0.00 x10^3/uL 06/21/21 05:03 Nucleated RBC % 0.0 /100WBC 06/21/21 05:03 Sodium 138 mmol/L (135-145) 06/21/21 05:03 Potassium 3.5 mmol/L (3.5-5.0) 06/21/21 05:03 Chloride 107 mmol/L (101-111) 06/21/21 05:03 Carbon Dioxide 24 mmol/L (21-32) 06/21/21 05:03 Anion Gap 7.0 (6-13) 06/21/21 05:03 BUN 11 mg/dL (6-20) 06/21/21 05:03 Creatinine 0.8 mg/dL (0.4-1.0) 06/21/21 05:03 Estimated GFR (MDRD) 75 (>89) L 06/21/21 05:03 Glucose 111 mg/dL (70-100) H 06/21/21 05:03 Lactic Acid 3.0 mmol/L (0.5-2.2) H* 06/20/21 18:07 Calcium 8.7 mg/dL (8.5-10.3) 06/21/21 05:03 Total Bilirubin 0.4 mg/dL (0.2-1.0) 06/20/21 13:09 AST 21 IU/L (10-42) 06/20/21 13:09 ALT 19 IU/L (10-60) 06/20/21 13:09 Alkaline Phosphatase 83 IU/L (42-121) 06/20/21 13:09 C-Reactive Protein 12.7 mg/dL (0-1.0) H 06/21/21 05:03 Total Protein 8.6 g/dL (6.7-8.2) H 06/20/21 13:09 Albumin 4.9 g/dL (3.2-5.5) 06/20/21 13:09 Globulin 3.7 g/dL (2.1-4.2) 06/20/21 13:09 Albumin/Globulin Ratio 1.3 (1.0-2.2) 06/20/21 13:09 Lipase 28 U/L (22-51) 06/20/21 13:09 Nasal Adenovirus (PCR) NOT DETECTED 06/20/21 15:09 Nasal B. parapertussis DNA (PCR) NOT DETECTED 06/20/21 15:09 Nasal Coronavir 229E PCR NOT DETECTED 06/20/21 15:09 Nasal Coronavir HKU1 PCR NOT DETECTED 06/20/21 15:09 Nasal Coronavir NL63 PCR NOT DETECTED 06/20/21 15:09 Nasal Coronavir OC43 PCR NOT DETECTED 06/20/21 15:09 Nasal Enterovir/Rhinovir PCR NOT DETECTED 06/20/21 15:09 Nasal Influenza B PCR NOT DETECTED 06/20/21 15:09 Nasal Influenza A PCR NOT DETECTED 06/20/21 15:09 Nasal Parainfluen 1 PCR NOT DETECTED 06/20/21 15:09 Nasal Parainfluen 2 PCR NOT DETECTED 06/20/21 15:09 Nasal Parainfluen 3 PCR NOT DETECTED 06/20/21 15:09 Nasal Parainfluen 4 PCR NOT DETECTED 06/20/21 15:09 Nasal RSV (PCR) NOT DETECTED 06/20/21 15:09 Nasal B.pertussis DNA PCR NOT DETECTED 06/20/21 15:09 Nasal C.pneumoniae (PCR) NOT DETECTED 06/20/21 15:09 Kaylny Human Metapneumo PCR NOT DETECTED 06/20/21 15:09 Nasal M.pneumoniae (PCR) NOT DETECTED 06/20/21 15:09 Nasal SARS-CoV-2 (PCR) NOT DETECTED 06/20/21 15:09 Sepsis Event Note (H) - Evaluation Current Stage of Sepsis: Sepsis - Sepsis Criteria Sepsis Criteria: Recorded Temperature greater than 38.3C or Less than 36C, Recorded Heart Rate greater than 90 bpm, WBC count greater than 12,000 or less than 4000, Metabolic: lactate > 2 mmol/L ABX Reporting Has patient been on IV antibiotics over the past 48 hours?: Yes
[2021-06-21] MEDS: OLOPATADINE HCL EACHEYE SCH (12:28)
[2021-06-21] MEDS: SACCHAROMYCES BOULARDII 250 MG CAPSULE PO SCH (17:06)
[2021-06-22] MEDS: SODIUM CHLORIDE FLUSH 0.9% 10 ML SYRINGE IVP SCH ×2 (04:47→09:39)
[2021-06-22 06:31] LABS: BASOPHILS % (AUTO) 0.8 %; EOSINOPHILS # (AUTO) 0.1 10^3/uL (0.0-0.7); EOSINOPHILS % (AUTO) 1.5 %; HCT - HEMATOCRIT 32.9 % (37.0-47.0); HGB - HEMOGLOBIN 10.7 g/dL (12.0-16.0); LYMPHOCYTES # (AUTO) 1.6 10^3/uL (1.5-3.5); LYMPHOCYTES % (AUTO) 31.3 %; MEAN CORPUSCULAR HEMOGLOBIN 29.6 pg (27.0-31.0); MEAN CORPUSCULAR HGB CONC 32.5 g/dL (32.0-36.0); MEAN CORPUSCULAR VOLUME 90.9 fL (81.0-99.0); MEAN PLATELET VOLUME 10.1 fL (7.9-10.8); MONOCYTES # (AUTO) 0.6 10^3/uL (0.0-1.0); MONOCYTES % (AUTO) 11.1 %; NEUTROPHILS # (AUTO) 2.9 10^3/uL (1.5-6.6); NEUTROPHILS % (AUTO) 54.9 %; PLT - PLATELET COUNT 207 10^3/uL (130-450); RED BLOOD COUNT 3.62 10^6/uL (4.20-5.40); RED CELL DISTRIBUTION WIDTH 12.9 % (12.0-15.0); WHITE BLOOD COUNT 5.2 x10^3/uL (4.8-10.8)
[2021-06-22] MEDS: LEVOTHYROXINE 75 MCG TABLET PO SCH (06:31)
[2021-06-22 06:47] LABS: CALCIUM 8.8 mg/dL (8.5-10.3); CREATININE 0.7 mg/dL (0.4-1.0); CRP - C-REACTIVE PROTEIN 14.7 mg/dL (0-1.0); POTASSIUM 3.7 mmol/L (3.5-5.0)
[2021-06-22 08:28] VITALS: BP 139/89
--- NOTE | 2021-06-22 09:25 | DISCHARGE SUMMARY ---
Discharge Summary Admit Date: 06/20/21 Discharge Date: 06/22/21 Discharging Provider: Kely Dejesus Primary Care Provider: Stephan Moralez Code Status: Attempt Resuscitation Condition at Discharge: Stable Discharge Disposition: 01 Home, Self Care - DIAGNOSES Admission Diagnoses: Sepsis Cellulitis of right thigh Hypertension Hypothyroidism Discharge Diagnoses with Status of Each Condition: Sepsis: Acute. Improved/Resolved Cellulitis of right thigh: Improving Discharged with cefuroxime 500mg po bid X 7 days Hypertension: Normotensive. Not on any medications Hypothyroidism: Chronic. Controlled. Continue home medications. - HPI History of Present Illness: Per HPI: 55-year-old white female who does not have a past medical history of diabetes, but has been having infections of her skin off and on for over 11 years. Usually over the buttocks or lower extremities. She is a patient followed at the [facility] and is not followed by local providers. 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 With that was a resection of the lymph glands in that right groin. Her first episode of cellulitis was with sepsis. She was hospitalized here at our hospital in 2011 and was hospitalized for 7 days and feels that she had acute kidney injury not only from sepsis but from the vancomycin used. She is very leery of using vancomycin. She has had 19 episodes of cellulitis. Last episode of cellulitis was May 2021. This was in her buttock area. She was treated with IM rocephine and then po abx and did well. She does not have a diagnosis of venous stasis or varicosities. Today she had an abrupt onset of myalgias, chills, and not feeling well. This is the worst she is ever felt. She feels "out of it", has nausea. She denies chest pain, shortness of breath. She has a new red area in the right upper calf very similar to previous areas of cellulitis. This has been the worst she is ever felt with any episode of cellulitis in the fast as it is ever come on. She also states that this is the most pain she has ever had. She has that there is an area of redness along the right lateral thigh that is flat, irregular and hot. She also has an area in the right medial thigh just above the knee. The entire thigh region feels very hot, tight, swollen, and tender to move. She has never felt this before. There has been no antecedent trauma. In the emergency room her temperature was initially 37.1 and then virgie to 38 degrees. Pulse has been consistently tachycardic at 103-109. Blood pressure was initially 171/88 and has come down to 148/83. Respirations are 20 and unlabored. She is 97% on room air. She received 1 L of fluid wide open, antibiotics, Tylenol. This was over the course of 2 hours. In spite of this, she still feels terrible. The redness and heat in her skin of her right calf are more painful than usual. As such emergency room provider would like us to admit the patient for cellulitis. She presents with hemodynamic instability of tachycardia that persists despite appropriate treatment. In a clinical presentation that is very acute, rapidly progressive. Very different than her previous presentations. I have asked the emergency room doctor to make sure she has had her antibiotics, and have asked him to please do a lactic acid. - HOSPITAL COURSE Hospital Course: Patient was treated with Rocephin 2 g IV daily. She received 3 doses by the day of discharge. Initially lactic acid was 3.3. With IV hydration lactic acid improved down to 0.9. CT of the pelvis and right lower extremity was negative for any subcutaneous infection. Over the course of her 2-day hospital stay the redness on her right lower extremity improved. By the day of discharge blood cultures were no growth to date. Patient was placed on cefuroxime 500 mg p.o. twice daily x7 days. She was discharged in stable condition. She may follow-up with her primary care physician as needed. - ALLERGIES Allergies/Adverse Reactions: Allergies Allergy/AdvReac Type Severity Reaction Status Date / Time No Known Drug Allergies Allergy Verified 06/20/21 11:20 - MEDICATIONS Home Medications: Ambulatory Orders Medication Instructions Recorded Confirmed Fluticasone [Flonase] 1 spray INH DAILY 12/20/13 06/20/21 Levothyroxine [Synthroid] 75 mcg PO DAILY 12/20/13 06/20/21 Olopatadine HCl [Patanol] 1 drop EACHEYE DAILY 01/09/15 06/20/21 Butalb/Acetaminophen/Caffeine 1 tab PO BID PRN 04/16/15 06/20/21 [Fioricet 50-300-40 mg Capsule] Cefuroxime Axetil [Cefuroxime] 500 mg PO BID 7 Days #14 tablet 06/22/21 - PHYSICAL EXAM AT DISCHARGE General Appearance: positive: Alert, Mild distress Eyes Bilateral: positive: PERRL, EOMI ENT: positive: No signs of dehydration Neck: positive: No JVD, Trachea midline Respiratory: positive: Chest non-tender, No respiratory distress, Breath sounds nml. negative: Wheezes, Rales, Rhonchi Cardiovascular: positive: Regular rate & rhythm, No murmur Abdomen: positive: Non-tender, No organomegaly, Nml bowel sounds, No distention. negative: Guarding, Rebound Skin: positive: Other (Tedness on medical and lateral aspect of right lower extremity. Improving) Extremities: positive: Full ROM, No pedal edema Neurologic/Psychiatric: positive: Oriented x3, Mood/affect nml - LABS Result Diagrams: 06/22/21 05:48 06/22/21 05:48 - SEPSIS Current Stage of Sepsis: Sepsis Sepsis Criteria: Recorded Temperature greater than 38.3C or Less than 36C, Recorded Heart Rate greater than 90 bpm, WBC count greater than 12,000 or less than 4000, Metabolic: lactate > 2 mmol/L - TIME SPENT Time Spent in Discharge (Minutes): 25
--- NOTE | 2021-06-22 09:29 | Discharge Plan ---
Discharge Plan Problem Reviewed?: Yes Disposition: Home, Self Care Condition: Stable Prescriptions: Cefuroxime Axetil [Cefuroxime] 500 mg PO BID 7 Days #14 tablet Diet: Regular Activity Restrictions: Activity as Tolerated Health Concerns: You were admitted on 06/20/2021 with right leg redness and pain for which work-up showed you with septic due to cellulitis. You were started on Rocephin IV for which by the day of discharge you had received 3 doses. Your white blood cell count improved from 14.5 down to 5.2 at the time of discharge. You have been afebrile for the past 2 days and a lactic acid which was initially 3.3 normalized to 0.9. Your blood cultures have been no growth to date so far. As a result you are being discharged home with oral antibiotics. You are prescribed cefuroxime 500 mg p.o. twice daily for 7 days. The above plan was explained to you, you expressed understanding and are agreeable with the plan. May follow-up with your primary care physician as needed. No Smoking: If you smoke, Please STOP! Call for help. Follow-up with: ETHAN HAZEL MD [Primary Care Provider] -
[2021-06-22] MEDS: ENOXAPARIN 40 MG/0.4 ML SYRINGE SUBQ SCH (09:38)
[2021-06-22] MEDS: cefTRIAXone 2 GM in SODIUM CHLORIDE 0.9% MINIBAG 100 ML IV SCH (09:38)
[2021-06-22] MEDS: SACCHAROMYCES BOULARDII 250 MG CAPSULE PO SCH (09:38)
[2021-06-22] MEDS: FLUTICASONE NASAL SPRAY NAS SCH (09:39)
[2021-06-22] MEDS: OLOPATADINE HCL EACHEYE SCH (09:39)
== END 2021-06-22 11:15 | disposition home or self-care (01) | DRG 872 ==
LOC: ED 11:04 → MS2 14:58
PROVIDERS: ADMIT Specialist; ATTEND Internal Medicine
DX: A41.9 Sepsis, unspecified organism (principal); L03.115 Cellulitis of right lower limb; I89.0 Lymphedema, not elsewhere classified; I10 Essential (primary) hypertension; E03.9 Hypothyroidism, unspecified; Z20.822 Contact with and (suspected) exposure to COVID-19; Z85.44 Personal history of malignant neoplasm of other female genital organs
CPT/HCPCS: 0202U; 36415; 72193; 73701; 80048; 80053; 83605; 83690; 85025; 86140; 87040; 96365; 99284; 99285; A9270; J1650; Q9967

== ENCOUNTER 2021-07-17 06:33 | Emergency (ER) | payer OTHER ==
[2021-07-17] MEDS ORDERED: SULFAMETH/TRIMETH DS 800/160 MG TABLET PO STA (07:28)
[2021-07-17] MEDS ORDERED: cefTRIAXone 1 GM VIAL IM STA (07:28)
--- NOTE | 2021-07-17 07:31 | ED Physician Documentation ---
History of Present Illness - Stated complaint Stated Complaint: RT LEG REDNESS/SHIVERS - Chief complaint Chief Complaint: Wound - History obtained from History obtained from: Patient - Additonal information Additional information: The patient comes to the emergency department chief complaint of "I have cellulitis again". She has a history of recurrent cellulitis in her right leg after having lymph nodes removed when she had cancer. She states that she seemed fine yesterday but woke up this morning with pain, redness, and chills. She has not measured any fevers at home. She feels slightly nauseated. No near syncope. Patient denies any other complaints at this time. Review of Systems Ten Systems: 10 systems reviewed and negative Constitutional: reports: Chills, Fatigue Eyes: reports: Reviewed and negative Ears: reports: Reviewed and negative Nose: reports: Reviewed and negative Throat: reports: Reviewed and negative Cardiac: reports: Reviewed and negative Respiratory: reports: Reviewed and negative GI: reports: Reviewed and negative : reports: Reviewed and negative Skin: reports: Other (Erythema) Musculoskeletal: reports: Reviewed and negative Neurologic: reports: Reviewed and negative Psychiatric: reports: Reviewed and negative Endocrine: reports: Reviewed and negative Immunocompromised: reports: Reviewed and negative PD PAST MEDICAL HISTORY - Past Medical History Cardiovascular: High cholesterol Respiratory: None Neuro: Headaches, Migraines Endocrine/Autoimmune: HyPOthyroidism GI: None 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 () : None HEENT: None Psych: None Musculoskeletal: None Derm: None - Past Surgical History Past Surgical History: Yes /ROLLING MACHINE TENDER: Tubal ligation - Present Medications Home Medications: Ambulatory Orders Medication Instructions Recorded Confirmed Fluticasone [Flonase] 1 spray INH DAILY 12/20/13 06/20/21 Levothyroxine [Synthroid] 75 mcg PO DAILY 12/20/13 06/20/21 Olopatadine HCl [Patanol] 1 drop EACHEYE DAILY 01/09/15 06/20/21 Butalb/Acetaminophen/Caffeine 1 tab PO BID PRN 04/16/15 06/20/21 [Fioricet 50-300-40 mg Capsule] Cefuroxime Axetil [Cefuroxime] 500 mg PO BID 7 Days #14 tablet 06/22/21 Sulfamethox/Trimeth 800/160 1 each PO BID #14 tablet 07/17/21 [Bactrim Ds 800/160] cephALEXin [Keflex] 500 mg PO Q6H #28 cap 07/17/21 - Allergies Allergies/Adverse Reactions: Allergies Allergy/AdvReac Type Severity Reaction Status Date / Time No Known Drug Allergies Allergy Verified 07/17/21 06:40 - Social History Does the pt smoke?: No Smoking Status: Former smoker Does the pt drink ETOH?: No Does the pt have substance abuse?: No - Immunizations Immunizations are current?: Yes - POLST Patient has POLST: Yes POLST Status: Full Code PD ED PE NORMAL - Vitals Vital signs reviewed: Yes - General General: Alert and oriented X 3, No acute distress, Well developed/nourished - HEENT HEENT: Atraumatic, PERRL, EOMI, Moist mucous membranes - Neck Neck: Supple, no meningeal sign - Cardiac Cardiac: RRR, No murmur, Strong equal pulses - Respiratory Respiratory: No respiratory distress, Clear bilaterally - Abdomen Abdomen: Soft, Non tender, Non distended - Derm Derm: Warm and dry, Other (2 erythematous patches on right thigh each approximately 20 cm diameter. Mild tenderness. No streaking.) - Extremities Extremities: No deformity - Neuro Neuro: Alert and oriented X 3 - Psych Psych: Normal mood, Normal affect Results - Vitals Vitals: Vital Signs - 24 hr 07/17/21 06:35 Temperature 35.5 C L Heart Rate 96 Respiratory 16 Rate Blood Pressure 145/94 H O2 Saturation 99 Oxygen O2 Source Room air PD MEDICAL DECISION MAKING - ED course Complexity details: considered differential, d/w patient ED course: The patient was treated with antibiotics in the emergency department and given prescriptions for the same. We have discussed follow-up and the usual indications for return. Departure - Departure Disposition: 01 Home, Self Care Clinical Impression: Cellulitis of right thigh Condition: Stable Instructions: ED Infec Skin Cellulitis Prescriptions: Sulfamethox/Trimeth 800/160 [Bactrim Ds 800/160] 1 each PO BID #14 tablet cephALEXin [Keflex] 500 mg PO Q6H #28 cap Comments: Your antibiotic prescriptions have been electronically transmitted to [facility] pharmacy in [place]. You do not display any findings consistent with sepsis at this time. If you develop fever at home, you may take Tylenol and/or ibuprofen to treat this. Please drink plenty of fluids and take your antibiotics with water and a little food. Please follow-up with your primary care physician if you are not doing better after a week.
[2021-07-17] MEDS ORDERED: LIDOCAINE-MPF 1% 2 ML AMP SUBQ STA (07:47)
[2021-07-17] MEDS ORDERED: LIDOCAINE-MPF 1% 5 ML VIAL IM STA (07:51)
[2021-07-17 08:16] VITALS: BP 122/72
== END 2021-07-17 08:17 | disposition home or self-care (01) ==
LOC: ED 06:33
DX: L03.115 Cellulitis of right lower limb (principal); E86.0 Dehydration; E87.6 Hypokalemia; R11.0 Nausea; Z85.9 Personal history of malignant neoplasm, unspecified; Z87.891 Personal history of nicotine dependence
CPT/HCPCS: 36415; 80053; 83605; 83690; 85025; 96360; 96372; 99283; A9270; Q0162

== ENCOUNTER 2021-07-17 11:08 | Emergency (ER) | payer OTHER ==
[2021-07-17 11:43] LABS: BASOPHILS % (AUTO) 0.3 %; EOSINOPHILS % (AUTO) 0.1 %; HCT - HEMATOCRIT 36.7 % (37.0-47.0); HGB - HEMOGLOBIN 12.4 g/dL (12.0-16.0); LYMPHOCYTES # (AUTO) 0.6 10^3/uL (1.5-3.5); LYMPHOCYTES % (AUTO) 4.7 %; MEAN CORPUSCULAR HEMOGLOBIN 30.1 pg (27.0-31.0); MEAN CORPUSCULAR HGB CONC 33.8 g/dL (32.0-36.0); MEAN CORPUSCULAR VOLUME 89.1 fL (81.0-99.0); MEAN PLATELET VOLUME 9.5 fL (7.9-10.8); MONOCYTES # (AUTO) 0.6 10^3/uL (0.0-1.0); NEUTROPHILS # (AUTO) 11.6 10^3/uL (1.5-6.6); NEUTROPHILS % (AUTO) 89.4 %; PLT - PLATELET COUNT 231 10^3/uL (130-450); RED BLOOD COUNT 4.12 10^6/uL (4.20-5.40); RED CELL DISTRIBUTION WIDTH 12.6 % (12.0-15.0); WHITE BLOOD COUNT 12.9 x10^3/uL (4.8-10.8)
[2021-07-17] MEDS ORDERED: ONDANSETRON ODT 4 MG TABLET TL STA (11:45)
[2021-07-17 11:56] LABS: ALBUMIN 4.1 g/dL (3.2-5.5); ALBUMIN/GLOBULIN RATIO 1.2 (1.0-2.2); BILIRUBIN,TOTAL 0.7 mg/dL (0.2-1.0); CREATININE 0.8 mg/dL (0.4-1.0); POTASSIUM 3.4 mmol/L (3.5-5.0); TOTAL PROTEIN 7.4 g/dL (6.7-8.2)
[2021-07-17] MEDS ORDERED: SODIUM CHLORIDE 0.9% 1,000 ML IV STA (12:05)
[2021-07-17] MEDS ORDERED: IBUPROFEN 800 MG TABLET PO STA (12:56)
[2021-07-17] MEDS ORDERED: ACETAMINOPHEN 325 MG TABLET PO STA (12:56)
--- NOTE | 2021-07-17 13:07 | ED Physician Documentation ---
History of Present Illness - Stated complaint Stated Complaint: LOOPY/NOT FEELING WELL - Chief complaint Chief Complaint: General - History obtained from History obtained from: Patient - Additonal information Additional information: The patient returns to the emergency department after being seen this morning for cellulitis on her thigh for chief complaint of "I do not feel right". The patient states she had a tympanic temperature of 101 this morning after leaving here and that the fever persisted until she got here to the emergency department, where she was found to have a normal temperature. She states she did not take anything for the fever. She received doses of Keflex and Bactrim this morning. The patient states she just feels "loopy". She states she has not been drinking any water because she "just does not have the energy". Patient states she feels a little nauseated here but has not been vomiting. No diarrhea. She was seen this morning for cellulitis but had no other complaints at that time and denies any new complaints such as cough or dysuria since. The patient has a history of recurrent cellulitis and has been admitted once before for sepsis and is concerned that she may be septic again. No other complaints at this time. Review of Systems Ten Systems: 10 systems reviewed and negative Constitutional: reports: Fever Eyes: reports: Reviewed and negative Ears: reports: Reviewed and negative Nose: reports: Reviewed and negative Throat: reports: Reviewed and negative Cardiac: reports: Reviewed and negative Respiratory: reports: Reviewed and negative GI: reports: Reviewed and negative : reports: Reviewed and negative Skin: reports: Other (Redness/cellulitis right thigh) Musculoskeletal: reports: Reviewed and negative Neurologic: reports: Reviewed and negative Psychiatric: reports: Reviewed and negative Endocrine: reports: Reviewed and negative Immunocompromised: reports: Reviewed and negative PD PAST MEDICAL HISTORY - Past Medical History Cardiovascular: High cholesterol Respiratory: None Neuro: Headaches, Migraines Endocrine/Autoimmune: HyPOthyroidism GI: None, Esophageal varices, Crohn's disease 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 HEENT: None Psych: None Musculoskeletal: None Derm: Other - Past Surgical History Past Surgical History: Yes /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: Tubal ligation - Present Medications Home Medications: Ambulatory Orders Medication Instructions Recorded Confirmed Fluticasone [Flonase] 1 spray INH DAILY 12/20/13 06/20/21 Levothyroxine [Synthroid] 75 mcg PO DAILY 12/20/13 06/20/21 Olopatadine HCl [Patanol] 1 drop EACHEYE DAILY 01/09/15 06/20/21 Butalb/Acetaminophen/Caffeine 1 tab PO BID PRN 04/16/15 06/20/21 [Fioricet 50-300-40 mg Capsule] Cefuroxime Axetil [Cefuroxime] 500 mg PO BID 7 Days #14 tablet 06/22/21 Ondansetron Odt [Zofran] 4 mg TL Q6H PRN #10 tablet 07/17/21 Sulfamethox/Trimeth 800/160 1 each PO BID #14 tablet 07/17/21 [Bactrim Ds 800/160] cephALEXin [Keflex] 500 mg PO Q6H #28 cap 07/17/21 - Allergies Allergies/Adverse Reactions: Allergies Allergy/AdvReac Type Severity Reaction Status Date / Time No Known Drug Allergies Allergy Verified 07/17/21 11:20 - Social History Does the pt smoke?: No Smoking Status: Never smoker Does the pt drink ETOH?: No Does the pt have substance abuse?: No - Immunizations Immunizations are current?: Yes - POLST Patient has POLST: Yes POLST Status: Full Code PD ED PE NORMAL - Vitals Vital signs reviewed: Yes - General General: Alert and oriented X 3, No acute distress, Well developed/nourished, Other (The patient appears unchanged from her visit this morning.) - HEENT HEENT: Atraumatic, PERRL, EOMI, Moist mucous membranes - Neck Neck: Supple, no meningeal sign - Cardiac Cardiac: RRR, No murmur, Strong equal pulses - Respiratory Respiratory: No respiratory distress, Clear bilaterally - Abdomen Abdomen: Soft, Non tender, Non distended - Back Back: No CVA TTP - Derm Derm: Warm and dry, Other (Erythema of right thigh unchanged from earlier this morning.) - Extremities Extremities: No deformity, No edema - Neuro Neuro: Alert and oriented X 3, work from home 2-12 intact, No motor deficit, No sensory deficit, Normal speech - Psych Psych: Normal mood, Normal affect Results - Vitals Vitals: Vital Signs - 24 hr 07/17/21 07/17/21 11:18 11:44 Temperature 37 C 37.4 C Heart Rate 88 103 H Respiratory 16 13 Rate Blood Pressure 139/79 H 134/88 H O2 Saturation 98 97 Oxygen O2 Source Room air - Labs Labs: Laboratory Tests 07/17/21 07/17/21 07/17/21 11:39 11:39 12:34 WBC 12.9 H RBC 4.12 L Hgb 12.4 Hct 36.7 L MCV 89.1 MCH 30.1 MCHC 33.8 RDW 12.6 Plt Count 231 MPV 9.5 Neut # (Auto) 11.6 H Lymph # (Auto) 0.6 L [place] # (Auto) 0.6 Eos # (Auto) 0.0 Baso # (Auto) 0.0 Absolute Nucleated RBC 0.00 Nucleated RBC % 0.0 Sodium 132 L Potassium 3.4 L Chloride 100 L Carbon Dioxide 21 Anion Gap 11.0 BUN 19 Creatinine 0.8 Estimated GFR (MDRD) 75 L Glucose 117 H Lactic Acid 1.0 Calcium 9.0 Total Bilirubin 0.7 AST 21 ALT 18 Alkaline Phosphatase 78 Total Protein 7.4 Albumin 4.1 Globulin 3.3 Albumin/Globulin Ratio 1.2 Lipase 25 PD MEDICAL DECISION MAKING - ED course Complexity details: reviewed old records, reviewed results, re-evaluated patient, considered differential, d/w patient ED course: The patient did not appear toxic and actually appeared about the same as when I saw her this morning. She was worked up with laboratory studies which showed a white blood cell count of 12.9 and a lactate of 1.0. She was noted to be mildly tachycardic in the low 100s with a normal blood pressure in the emergency department. It was also noted that when I sat her up to listen to her lungs, her heart rate went up into the 120s. Because of this, she was given a liter of 0.9 normal saline in the emergency department. She was also treated with Zofran for her nausea. She was found to be mildly hypokalemic and was treated for this as well. I discussed with the patient that at this point, I do not find any evidence of sepsis. She may be feeling somewhat nauseated because of the antibiotic pills she is on, but at this point, I would recommend she continue taking them. As far as the feeling "off", this may be from her infection or not sleeping well last night, but the patient does not have any objective findings of altered mental status, and she is stable for discharge home. We have discussed fever management at home with ibuprofen and Tylenol, and patient has been treated with the same here in the emergency department. We have discussed the usual indications for return. Departure - Departure Disposition: 01 Home, Self Care Clinical Impression: Dehydration Cellulitis Qualifiers: Site of cellulitis: extremity Site of cellulitis of extremity: lower extremity Laterality: right Qualified Code(s): L03.115 - Cellulitis of right lower limb Condition: Stable Instructions: ED Infec Skin Cellulitis, ED Dehydration Prescriptions: Ondansetron Odt [Zofran] 4 mg TL Q6H PRN #10 tablet PRN Reason: Nausea / Vomiting Comments: You have a slightly elevated white blood cell count, which is not surprising, given your cellulitis. Your sepsis markers in your blood are normal, and your b lood pressure is normal. You need to be sure you are drinking plenty more water, especially while you are on antibiotics. Your nausea may be from the cellulitis but it may also be from being on antibiotics which can cause some stomach upset. Please continue the antibiotics as directed. You should follow- up with your primary care physician if your cellulitis is not improved in a week, as we discussed.
[2021-07-17 13:29] VITALS: BP 153/94
== END 2021-07-17 13:31 | disposition home or self-care (01) ==
LOC: ED 11:08
DX: E86.0 Dehydration (principal); E87.6 Hypokalemia; R11.0 Nausea; L03.115 Cellulitis of right lower limb
CPT/HCPCS: 36415; 80053; 83605; 83690; 85025; 96360

== ENCOUNTER 2023-11-15 17:42 | Emergency (ER) | payer OTHER ==
[2023-11-15 18:06] VITALS: O2SAT 98
--- NOTE | 2023-11-15 18:26 | ED Physician Documentation ---
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 HEENT: None Psych: None Musculoskeletal: None Derm: Other - Past Surgical History Past Surgical History: Yes /HOSPITAL EDUCATOR: Tubal ligation - Present Medications Home Medications: Ambulatory Orders Medication Instructions Recorded Confirmed Fluticasone [Flonase] 1 spray INH DAILY 12/20/13 06/20/21 Levothyroxine [Synthroid] 75 mcg PO DAILY 12/20/13 06/20/21 Olopatadine HCl [Patanol] 1 drop EACHEYE DAILY 01/09/15 06/20/21 Butalb/Acetaminophen/Caffeine 1 tab PO BID PRN 04/16/15 06/20/21 [Fioricet 50-300-40 mg Capsule] Cefuroxime Axetil [Cefuroxime] 500 mg PO BID 7 Days #14 tablet 06/22/21 Ondansetron Odt [Zofran] 4 mg TL Q6H PRN #10 tablet 07/17/21 Sulfamethox/Trimeth 800/160 1 each PO BID #14 tablet 07/17/21 [Bactrim Ds 800/160] cephALEXin [Keflex] 500 mg PO Q6H #28 cap 07/17/21 cephALEXin [Keflex] 500 mg PO Q6H #40 cap 11/15/23 - Allergies Allergies/Adverse Reactions: Allergies Allergy/AdvReac Type Severity Reaction Status Date / Time No Known Drug Allergies Allergy Verified 11/15/23 18:00 - Social History Does the pt smoke?: No Smoking Status: Never smoker Does the pt drink ETOH?: No Does the pt have substance abuse?: No - Immunizations Immunizations are current?: Yes - POLST Patient has POLST: Yes POLST Status: Full Code PD ED PE NORMAL - Vitals Vital signs reviewed: Yes - General General: Alert and oriented X 3, No acute distress - Derm Derm: Other (There is area of cellulitis marked on the low back over the lumbar spine. No fluctuance or purulence. Nothing to culture.) - Neuro Neuro: Alert and oriented X 3, Normal speech Results - Vitals Vitals: Vital Signs - 24 hr 11/15/23 18:00 Temperature 36.9 C Heart Rate 100 Respiratory 16 Rate Blood Pressure 180/100 H O2 Saturation 98 Oxygen O2 Source Room air PD Medical Decision Making - ED course ED course: 58-year-old woman with no lymph nodes in her pelvis presents with a recurrent cellulitis on the low back treated with IM Ancef. She does not appear ill/septic. Departure - Departure Disposition: Home, Self Care Clinical Impression: Cellulitis Condition: Good Record reviewed to determine appropriate education?: Yes Instructions: Cellulitis Dc Prescriptions: cephALEXin [Keflex] 500 mg PO Q6H #40 cap Comments: Return if you worsen, if the redness spreads significantly, or if you develop a fever. I sent the prescription electronically for the antibiotic to the [facility] in [place]. Follow-up with your doctor Sunday or so for recheck.
[2023-11-15] MEDS: ceFAZolin 1 GM VIAL IM STA (18:48)
[2023-11-15 19:04] VITALS: BP 180/98
== END 2023-11-15 18:55 | disposition home or self-care (01) ==
LOC: ED 17:42
DX: L03.312 Cellulitis of back [any part except buttock and flank] (principal); E78.00 Pure hypercholesterolemia, unspecified; E03.9 Hypothyroidism, unspecified; K50.90 Crohn's disease, unspecified, without complications; Z79.899 Other long term (current) drug therapy
CPT/HCPCS: 96372; 99283

== ENCOUNTER 2023-11-16 13:50 | Emergency (ER) | payer OTHER ==
[2023-11-16 14:08] VITALS: BP 138/89; O2SAT 99
--- NOTE | 2023-11-16 14:14 | ED Physician Documentation ---
PD HPI WOUND RECHECK - Stated complaint Stated Complaint: BACK PX, REDNESS/SWELLING,FEVER - Chief complaint Chief Complaint: Wound - Histroy obtained from History obtained from: Patient - Additional information Additional information: She has history of recurrent cellulitis because of lymph node dissection and I saw her yesterday for cellulitis on the low back. She was administered Ancef and Keflex which she was compliant with. Overnight she did have a fever to 101 and felt nauseous all night. The fever and the nausea are gone today. But the area of redness is larger and more uncomfortable though she declines pain medication on initial evaluation. 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 HEENT: None Psych: None Musculoskeletal: None Derm: Other - Past Surgical History Past Surgical History: Yes /DOUBLE CUT SAWYER: Tubal ligation - Present Medications Home Medications: Ambulatory Orders Medication Instructions Recorded Confirmed Fluticasone [Flonase] 1 spray INH DAILY 12/20/13 06/20/21 Levothyroxine [Synthroid] 75 mcg PO DAILY 12/20/13 06/20/21 Olopatadine HCl [Patanol] 1 drop EACHEYE DAILY 01/09/15 06/20/21 Butalb/Acetaminophen/Caffeine 1 tab PO BID PRN 04/16/15 06/20/21 [Fioricet 50-300-40 mg Capsule] Cefuroxime Axetil [Cefuroxime] 500 mg PO BID 7 Days #14 tablet 06/22/21 Ondansetron Odt [Zofran] 4 mg TL Q6H PRN #10 tablet 07/17/21 Sulfamethox/Trimeth 800/160 1 each PO BID #14 tablet 07/17/21 [Bactrim Ds 800/160] cephALEXin [Keflex] 500 mg PO Q6H #28 cap 07/17/21 cephALEXin [Keflex] 500 mg PO Q6H #40 cap 11/15/23 predniSONE [Deltasone] 40 mg PO DAILY 3 Days #6 tablet 11/16/23 - Allergies Allergies/Adverse Reactions: Allergies Allergy/AdvReac Type Severity Reaction Status Date / Time No Known Drug Allergies Allergy Verified 11/16/23 14:08 - Social History Does the pt smoke?: No Smoking Status: Never smoker Does the pt drink ETOH?: No Does the pt have substance abuse?: No - Immunizations Immunizations are current?: Yes - POLST Patient has POLST: Yes POLST Status: Full Code PD ED PE NORMAL - Vitals Vital signs reviewed: Yes (Mild resting tachycardia, afebrile) - General General: Alert and oriented X 3, No acute distress - Neck Neck: Supple, no meningeal sign, No bony TTP - Cardiac Cardiac: RRR, No murmur - Respiratory Respiratory: No respiratory distress, Clear bilaterally - Abdomen Abdomen: Normal bowel sounds, Soft, Non tender - Derm Derm: Other (The area of cellulitis on the low back is somewhat larger than it was yesterday. No signs of necrotizing infection such as pain out of proportion to exam, bullae or dark discoloration. No crepitance.) - Extremities Extremities: No edema, No calf tenderness / cord - Neuro Neuro: Alert and oriented X 3, Normal speech Results - Vitals Vitals: Vital Signs - 24 hr 11/16/23 14:05 Temperature 36.5 C Heart Rate 102 H Respiratory 16 Rate Blood Pressure 138/89 H O2 Saturation 99 Oxygen O2 Source Room air - Labs Labs: Laboratory Tests 11/16/23 11/16/23 11/16/23 14:27 14:27 14:27 WBC 6.5 RBC 4.17 L Hgb 12.5 Hct 37.7 MCV 90.4 MCH 30.0 MCHC 33.2 RDW 12.7 Plt Count 223 MPV 9.6 Neut # (Auto) 4.5 Lymph # (Auto) 1.4 L [place] # (Auto) 0.5 Eos # (Auto) 0.0 Baso # (Auto) 0.0 Absolute Nucleated RBC 0.00 Nucleated RBC % 0.0 Sodium 136 Potassium 3.5 Chloride 103 Carbon Dioxide 26 Anion Gap 7.0 BUN 12 Creatinine 0.8 Estimated GFR (MDRD) 74 L Glucose 141 H Lactic Acid 1.4 Calcium 9.8 Total Bilirubin 0.4 AST 14 ALT 11 Alkaline Phosphatase 84 Total Protein 7.4 Albumin 4.4 Globulin 3.0 Albumin/Globulin Ratio 1.5 PD Medical Decision Making - ED course ED course: She received another dose of IV Ancef. Labs were checked with normal white count and unremarkable CBC and CMP otherwise. I did start her on steroids per the following reference. https://journals.lww.com/em-news/fulltext/2018/35449/what_to_d_o___steroids_for_ cellulitis_reduce.1.aspx She was eager to go home. Departure - Departure Disposition: Home, Self Care Clinical Impression: Cellulitis Condition: Good Record reviewed to determine appropriate education?: Yes Instructions: ED Infec Skin Cellulitis Prescriptions: predniSONE [Deltasone] 40 mg PO DAILY 3 Days #6 tablet Comments: Continue your Keflex antibiotic with the next dose being around 9 tonight. I sent the new prescription for steroids to [facility], next dose tomorrow. Return if worsening or if not improving by Sunday. Forms: PCP List, Activity restrictions Discharge Date/Time: 11/16/23 15:31
[2023-11-16 14:38] LABS: BASOPHILS % (AUTO) 0.5 %; EOSINOPHILS % (AUTO) 0.3 %; HCT - HEMATOCRIT 37.7 % (37.0-47.0); HGB - HEMOGLOBIN 12.5 g/dL (12.0-16.0); LYMPHOCYTES # (AUTO) 1.4 10^3/uL (1.5-3.5); LYMPHOCYTES % (AUTO) 21.8 %; MEAN CORPUSCULAR HGB CONC 33.2 g/dL (32.0-36.0); MEAN CORPUSCULAR VOLUME 90.4 fL (81.0-99.0); MEAN PLATELET VOLUME 9.6 fL (7.9-10.8); MONOCYTES # (AUTO) 0.5 10^3/uL (0.0-1.0); MONOCYTES % (AUTO) 7.7 %; NEUTROPHILS # (AUTO) 4.5 10^3/uL (1.5-6.6); NEUTROPHILS % (AUTO) 69.5 %; PLT - PLATELET COUNT 223 10^3/uL (130-450); RED BLOOD COUNT 4.17 10^6/uL (4.20-5.40); RED CELL DISTRIBUTION WIDTH 12.7 % (12.0-15.0); WHITE BLOOD COUNT 6.5 x10^3/uL (4.8-10.8)
[2023-11-16 14:50] LABS: ALBUMIN 4.4 g/dL (3.2-5.5); ALBUMIN/GLOBULIN RATIO 1.5 (1.0-2.2); BILIRUBIN,TOTAL 0.4 mg/dL (0.2-1.0); CALCIUM 9.8 mg/dL (8.5-10.3); CREATININE 0.8 mg/dL (0.6-1.3); POTASSIUM 3.5 mmol/L (3.5-4.5); TOTAL PROTEIN 7.4 g/dL (6.4-8.9)
[2023-11-16] MEDS: SODIUM CHLORIDE 0.9% 1,000 ML IV STA (15:00)
[2023-11-16] MEDS: ceFAZolin 1 GM VIAL IVP STA (15:00)
[2023-11-16] MEDS: predniSONE 20 MG TABLET PO STA (15:18)
== END 2023-11-16 15:31 | disposition home or self-care (01) ==
LOC: ED 13:50
DX: L03.312 Cellulitis of back [any part except buttock and flank] (principal); E78.00 Pure hypercholesterolemia, unspecified; E03.9 Hypothyroidism, unspecified; K50.90 Crohn's disease, unspecified, without complications; Z79.899 Other long term (current) drug therapy
CPT/HCPCS: 36415; 80053; 83605; 85025; 87040; 96374; 99283; 99284; J7512

== ENCOUNTER 2023-12-15 17:37 | Emergency (ER) | payer OTHER ==
--- NOTE | 2023-12-15 19:37 | ED Physician Documentation ---
PD HPI SKIN - Stated complaint Stated Complaint: CELLULITIS - Chief complaint Chief Complaint: Wound - History obtained from History obtained from: Patient - Additional information Additional information: HPI from patient. Patient c/o bilateral buttock pain, burning x 2-3 days. Symptoms are significan tly more notable on right buttock. She was T+R from this ED after evaluation for same c/o , given 2gm cefazolin and rx keflex. She returns due to worsening of symptoms, developed fever Tmax 102.9 overnight, generalized malaise and fatigue. c/o nausea, no vomiting. PMHx includes remote h/o cancer with inguinal LN resection. Review of Systems Constitutional: reports: Fever Cardiac: reports: Reviewed and negative Respiratory: reports: Reviewed and negative GI: reports: Nausea. 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 - Present Medications Home Medications: Ambulatory Orders Medication Instructions Recorded Confirmed Fluticasone [Flonase] 1 spray INH DAILY 12/20/13 06/20/21 Levothyroxine [Synthroid] 75 mcg PO DAILY 12/20/13 06/20/21 Olopatadine HCl [Patanol] 1 drop EACHEYE DAILY 01/09/15 06/20/21 Butalb/Acetaminophen/Caffeine 1 tab PO BID PRN 04/16/15 06/20/21 [Fioricet 50-300-40 mg Capsule] cephALEXin [Keflex] 500 mg PO Q6H #28 cap 07/17/21 Amoxicillin 875 mg PO BID #13 tablet 12/15/23 Doxycycline [Vibramycin] 100 mg PO BID #13 tablet 12/15/23 - Allergies Allergies/Adverse Reactions: Allergies Allergy/AdvReac Type Severity Reaction Status Date / Time No Known Drug Allergies Allergy Verified 12/15/23 19:32 - Social History Does the pt smoke?: No Smoking Status: Never smoker Does the pt drink ETOH?: No Does the pt have substance abuse?: No - Immunizations Immunizations are current?: Yes - POLST Patient has POLST: Yes POLST Status: Full Code PD ED PE NORMAL - Vitals Vital signs reviewed: Yes - General General: Alert and oriented X 3, No acute distress, Well developed/nourished - Neck Neck: No bruit - Cardiac Cardiac: RRR, No murmur - Respiratory Respiratory: No respiratory distress, Clear bilaterally - Abdomen Abdomen: Soft, Non tender - Back Back: No CVA TTP, No spinal TTP PD ED PE EXPANDED - Visual Whole body visual: 1 - rash (confluent erythema without sharp margins. no fluctuance. mildly hot to touch (compared to surrounding skin). no involvement (no abnormalities) of perineum) Results - Vitals Vitals: Oxygen O2 Source Room air - Labs Labs: Laboratory Tests 12/15/23 12/15/23 12/15/23 19:58 19:58 19:58 WBC 8.5 RBC 4.20 Hgb 12.4 Hct 38.2 MCV 91.0 MCH 29.5 MCHC 32.5 RDW 12.9 Plt Count 253 MPV 9.3 Neut # (Auto) 6.4 Lymph # (Auto) 1.5 [place] # (Auto) 0.5 Eos # (Auto) 0.0 Baso # (Auto) 0.1 Absolute Nucleated RBC 0.00 Nucleated RBC % 0.0 Sodium 132 L Potassium 3.8 Chloride 102 Carbon Dioxide 22 Anion Gap 8.0 BUN 16 Creatinine 0.7 Estimated GFR (MDRD) 87 L Glucose 110 H Lactic Acid 0.7 Calcium 9.7 Magnesium 1.8 Total Bilirubin 0.5 AST 13 ALT 10 Alkaline Phosphatase 83 Total Protein 7.4 Albumin 4.4 Globulin 3.0 Albumin/Globulin Ratio 1.5 Lipase 12 PD Medical Decision Making - ED course Complexity details: reviewed old records, reviewed results, re-evaluated patient, considered differential, d/w patient ED course: Entirely normal CBC. Lactate level WNL. ER abdominal panel without notable abnormality (mild hyponatremia noted, NA 132). Patient is well-appearing and afebrile in ED. Given 2 grams IM cefazolin. UpToDate algorithm would suggest that optimal antibiotic regimen in this scenario would be doxycycline and 750mg BID amoxicillin, and thus she is given first doses of these two PO antibiotics and e-prescribed one-week course of these. Instructed to stop taking the keflex. Return precautions were carefully reviewed and I included instruction to have a low threshold for return to ED. Departure - Departure Disposition: 01 Home, Self Care Clinical Impression: Cellulitis of buttock, right Condition: Good Instructions: ED Infec Skin Cellulitis Follow-Up: JOCELYNE GEE NP [Primary Care Provider] - Prescriptions: Amoxicillin 875 mg PO BID #13 tablet Doxycycline [Vibramycin] 100 mg PO BID #13 tablet Comments: The results of dontrell's blood tests are quite reassuring, with no concerning abnormalities. Your white blood cell count was normal. Your lactate was within the normal range (as we discussed, an elevated lactate level tends to infer a more advanced infection than the findings on physical exam alone would suggest). I have electronically submitted prescriptions for two new antibiotics to the [facility] pharmacy in [place]. If you are currently taking a previously prescribed antibiotic for the cellulitis, you are to stop the previously prescribed antibiotic and will be taking the 2 antibiotics I am prescribing for you instead. The antibiotics being prescribed are amoxicillin and doxycycline. This will give broader anti-bacterial coverage for your cellulitis, with some double-coverage as well. You were given the first doses of these two antibiotics in the emergency department prior to being discharged. Follow-up with your primary care provider within the next 3 to 5 days for recheck of the cellulitis Discharge Date/Time: 12/15/23 22:33
[2023-12-15 20:04] LABS: BASOPHILS # (AUTO) 0.1 10^3/uL (0.0-0.1); BASOPHILS % (AUTO) 0.6 %; EOSINOPHILS % (AUTO) 0.1 %; HCT - HEMATOCRIT 38.2 % (37.0-47.0); HGB - HEMOGLOBIN 12.4 g/dL (12.0-16.0); LYMPHOCYTES # (AUTO) 1.5 10^3/uL (1.5-3.5); LYMPHOCYTES % (AUTO) 17.1 %; MEAN CORPUSCULAR HEMOGLOBIN 29.5 pg (27.0-31.0); MEAN CORPUSCULAR HGB CONC 32.5 g/dL (32.0-36.0); MEAN PLATELET VOLUME 9.3 fL (7.9-10.8); MONOCYTES # (AUTO) 0.5 10^3/uL (0.0-1.0); MONOCYTES % (AUTO) 6.3 %; NEUTROPHILS # (AUTO) 6.4 10^3/uL (1.5-6.6); NEUTROPHILS % (AUTO) 75.7 %; PLT - PLATELET COUNT 253 10^3/uL (130-450); RED CELL DISTRIBUTION WIDTH 12.9 % (12.0-15.0); WHITE BLOOD COUNT 8.5 x10^3/uL (4.8-10.8)
[2023-12-15] MEDS: SODIUM CHLORIDE 0.9% 1,000 ML IV STA (20:05)
[2023-12-15] MEDS ORDERED: ceFAZolin 2 GM VIAL ONE (20:13)
[2023-12-15 20:20] LABS: ALBUMIN 4.4 g/dL (3.2-5.5); ALBUMIN/GLOBULIN RATIO 1.5 (1.0-2.2); BILIRUBIN,TOTAL 0.5 mg/dL (0.2-1.0); CALCIUM 9.7 mg/dL (8.5-10.3); CREATININE 0.7 mg/dL (0.6-1.3); MAGNESIUM 1.8 mg/dL (1.7-2.3); POTASSIUM 3.8 mmol/L (3.5-4.5); TOTAL PROTEIN 7.4 g/dL (6.4-8.9)
[2023-12-15] MEDS: ceFAZolin (2G) 2 GM in SODIUM CHLORIDE 0.9% 100ML 100 ML IV STA (20:23)
[2023-12-15 21:14] VITALS: O2SAT 96
[2023-12-15] MEDS: AMOXICILLIN 250 MG CAPSULE PO STA (22:22)
[2023-12-15] MEDS: DOXYCYCLINE 100 MG TABLET PO STA (22:22)
[2023-12-15 22:41] VITALS: BP 138/87
== END 2023-12-15 22:33 | disposition home or self-care (01) ==
LOC: ED 17:37
DX: L03.317 Cellulitis of buttock (principal); E78.00 Pure hypercholesterolemia, unspecified; E03.9 Hypothyroidism, unspecified; K50.90 Crohn's disease, unspecified, without complications; Z79.899 Other long term (current) drug therapy
CPT/HCPCS: 36415; 80053; 83605; 83690; 83735; 85025; 96365; 99284; A9270